=== PATIENT | female | born 1950 | race Caucasian/White ===

== ENCOUNTER → 2018-08-19 19:46 | Outpatient (CLI) | payer OTHER, SELFPAY ==
--- NOTE | 2018-08-19 19:53 | DI.RAD.S_ITS ---
PROCEDURE: XR CHEST 2V INDICATIONS: cough TECHNIQUE: 2 views of the chest were acquired. COMPARISON: [facility], CHEST 2 VIEW, 04/03/2017, 14:51. [facility], CHEST 2 VIEW, 06/12/2012, 10:06. [facility], CHEST 2 VIEW, 09/28/2011, 10:51. [facility], CHEST 2 VIEW, 04/27/2011, 11:10. FINDINGS: Surgical changes and devices: Surgical clips project over the bilateral chest wall/axillae. Stable high attenuation material within a lower thoracic/superior lumbar vertebral body, consistent with prior kyphoplasty. Lungs and pleura: Minimal bibasilar hazy opacities with blunting of the costophrenic angles noted bilaterally. No pneumothorax. Mediastinum: Mediastinal contours are normal. Heart size is normal. Bones and chest wall: No suspicious bony abnormalities. Soft tissues appear unremarkable. IMPRESSION: Hazy bibasilar pulmonary opacities most consistent with mild bibasilar atelectasis and trace bilateral pleural effusions, with pneumonia thought less likely. Dictated by: Peng Luna M.D. on 08/19/2018 at 20:16 Approved by: Peng Luna M.D. on 08/19/2018 at 20:19
== END ==
PROVIDERS: Family Provider Family Medicine; PCP Family Medicine; Visit Provider Physician Assistant
DX: R05 Cough (principal)
CPT/HCPCS: 71046

== ENCOUNTER → 2018-08-31 09:01 | Outpatient (CLI) | payer OTHER, SELFPAY ==
[2018-08-31 09:55] LABS: Add Manual Diff / Slide Review NO; Basophils Absolute Auto 100 /uL (0-100); Basophils Percent Auto 0.9 % (0-2); Eosinophils Absolute Auto 400 /uL (0-450); Eosinophils Percent Auto 5.2 % (2-4); Hematocrit 40.2 % (36-46); Hemoglobin 13.9 g/dL (12.0-16.0); Lymphocytes Absolute Auto 2400 /uL (1100-4500); Lymphocytes Percent Auto 28.5 % (25-40); Mean Corpuscular HGB Conc 34.4 % (30-36); Mean Corpuscular Hemoglobin 31.2 PG (26-34); Mean Corpuscular Volume 90.7 fL (80-100); Monocytes Absolute Auto 800 /uL (0-900); Monocytes Percent Auto 9.7 % (3-14); Neutrophils Absolute Auto 4800 /uL (1500-7000); Neutrophils Percent Auto 55.7 % (50-75); Platelet Count 262 X10^3/uL (150-400); Red Blood Cell Count 4.44 X10^6/uL (4.0-5.2); Red Cell Distribution Width 12.5 % (11.6-14.8); White Blood Cell Count 8.6 X10^3/uL (4.5-11.0)
[2018-08-31 10:16] LABS: Alanine Aminotransferase 29 IU/L (9-52); Albumin 4.3 g/dL (3.5-5.0); Albumin Globulin Ratio 1.8 (1.0-2.8); Alkaline Phosphatase 66 U/L (38-126); Aspartate Aminotransferase 25 IU/L (14-36); BUN Creatinine Ratio 18.3 (6-22); Bilirubin Total 0.5 mg/dL (0.2-1.3); Blood Urea Nitrogen 11 mg/dL (7-17); Calcium 10.1 mg/dL (8.4-10.2); Carbon Dioxide 27 mmol/L (22-32); Chloride 104 mmol/L (98-107); Cholesterol 186 mg/dL (140-199); Estimated Glomerular Filt Rate > 60.0 mL/min (>60); Globulin 2.4 g/dL (1.7-4.1); Glucose 98 mg/dL (80-110); HDL Cholesterol 57 mg/dL (40-60); HEMOLYSIS < 15 (0-50); LDL Cholesterol Calculated 109 mg/dL (<100); Potassium 4.1 mmol/L (3.4-5.1); Sodium 138 mmol/L (137-145); Total Protein 6.7 g/dL (6.3-8.2); Triglycerides 98 mg/dL (35-150)
[2018-08-31 11:11] LABS: Vitamin D 25 Hydroxy (D3) 58.8 ng/mL (30.0-100.0)
[2018-08-31 11:26] LABS: Thyroid Stimulating Hormone 1.27 uIU/mL (0.47-4.68)
== END ==
PROVIDERS: PCP Family Medicine; Visit Provider Family Medicine
DX: M81.0 Age-related osteoporosis without current pathological fracture (principal); R89.9 Unspecified abnormal finding in specimens from other organs, systems and tissues; Z13.0 Encounter for screening for diseases of the blood and blood-forming organs and certain disorders involving the immune mechanism; Z13.1 Encounter for screening for diabetes mellitus; Z13.220 Encounter for screening for lipoid disorders; Z13.29 Encounter for screening for other suspected endocrine disorder; Z85.3 Personal history of malignant neoplasm of breast
CPT/HCPCS: 36415; 80053; 80061; 82306; 84443; 85025

== ENCOUNTER → 2018-09-02 09:31 | Outpatient (CLI) | payer OTHER, SELFPAY ==
--- NOTE | 2018-09-02 09:32 | DI.US.S_ITS ---
PROCEDURE: US ABDOMEN COMPLETE INDICATIONS: abd pain TECHNIQUE: Real-time scanning was performed of the abdominal and retroperitoneal organs, with image documentation. COMPARISON: [facility], CT, PE STUDY (CTA CHEST), 01/05/2008, 15:13. FINDINGS: Liver: Liver is normal in size and homogeneous in echotexture. Gallbladder: Surgically absent Biliary ducts: Intrahepatic bile ducts are non-dilated. Extrahepatic bile duct caliber measures 5 mm. Normal is 6-7 mm or less in diameter, or 10 mm or less post-cholecystectomy. Pancreas: Visualized portions of the pancreas are sonographically normal. Spleen: Spleen is normal in size and homogeneous in echotexture. Kidneys: Kidneys are normal in size and echotexture. Right kidney measures 11.9 cm long; left kidney measures 12.0 cm long. No hydronephrosis or nephrolithiasis. No solid masses. Complex right renal cyst measuring 1.4 x 4.6 x 6.0 cm with internal septations and echoes. Aorta: Visualized aorta is normal in caliber at less than 3 cm. Iliacs: Proximal common iliac arteries are normal in caliber at less than 2.5 cm. IVC: Intrahepatic inferior vena cava is patent. Miscellaneous: No free abdominal fluid. An area of left lower quadrant scar/pain, no discrete sonographic mass or focal fluid collection is identified. IMPRESSION: No sonographic abnormality in area of left lower quadrant pain/scar. Mildly complex right renal cyst with internal septations. Recommend long-term ultrasound surveillance in 6 months given the absence of any relevant prior studies. Dictated by: Carlos Reyes M.D. on 09/02/2018 at 12:02 Approved by: Carlos Reyes M.D. on 09/02/2018 at 12:06
== END ==
PROVIDERS: PCP Family Medicine; Visit Provider Family Medicine
DX: R10.9 Unspecified abdominal pain (principal); N28.1 Cyst of kidney, acquired; Z90.49 Acquired absence of other specified parts of digestive tract
CPT/HCPCS: 76700

== ENCOUNTER → 2019-01-19 07:20 | Outpatient (CLI) | payer OTHER, SELFPAY ==
[2019-01-19 08:41] LABS: BUN Creatinine Ratio 23.3 (6-22); Blood Urea Nitrogen 14 mg/dL (7-17); Calcium 10.2 mg/dL (8.4-10.2); Carbon Dioxide 27 mmol/L (22-32); Chloride 102 mmol/L (98-107); Estimated Glomerular Filt Rate > 60.0 mL/min (>60); Glucose 102 mg/dL (80-110); HEMOLYSIS 25 (0-50); Potassium 5.2 mmol/L (3.4-5.1); Sodium 136 mmol/L (137-145)
--- NOTE | 2019-01-19 09:03 | DI.CT.S_ITS ---
PROCEDURE: CT CHEST ABD PEL W CON INDICATIONS: Abdominal Wall Pain TECHNIQUE: After the administration of oral and intravenous contrast, 5 mm thick sections acquired from the lung apices to the symphysis. 5 mm coronal and sagittal reformats were performed, with additional 7 mm coronal MIP reformats through the lungs. For radiation dose reduction, the following was used: automated exposure control, adjustment of mA and/or kV according to patient size. COMPARISON: [facility], CR, ABDOMEN ACUTE SERIES, 06/18/2013, 17:58. [facility], MR, L-SPINE WITHOUT CONTRAST, 06/29/2013, 17:01. [facility], CT, PE STUDY (CTA CHEST), 01/05/2008, 15:13. FINDINGS: Image quality: Excellent. CHEST: Lungs and pleura: No acute consolidative opacities. Scattered scarring/atelectasis. No pleural effusions or pneumothorax. Central and peripheral airways appear patent and normal in caliber. Mild central airway thickening Mediastinum: Heart size is normal. No pericardial effusion. No mediastinal or hilar adenopathy by size criteria. Subcentimeter nonspecific right hilar lymph nodes. Thoracic aorta enlarged measuring 4.1 cm diameter. The central pulmonary arteries are normal in size. Esophagus is normal in caliber. No hiatal hernia. Chest wall: No axillary or supraclavicular adenopathy by size criteria. Thyroid gland negative. ABDOMEN: Solid organs: Liver is normal in size and enhancement. Gallbladder surgically absent. Biliary system is non dilated. Pancreas enhances normally. Spleen is normal in size and enhancement. Unchanged left adrenal nodule dating back to 01/05/08. Right adrenal gland unremarkable. Kidneys demonstrate normal size and enhancement, without hydronephrosis. Simple appearing bilateral renal cysts. Peritoneum and bowel: Bowel loops demonstrate normal wall thickness and caliber. No free fluid or air. Nodes and vessels: Shotty subcentimeter retroperitoneal lymph nodes without pathologic enlargement by size criteria. Aorta and inferior vena cava are normal in size. 5 mm left pelvic sidewall lymph node on image 100 series 2, nonspecific. Miscellaneous: Tiny fat containing umbilical hernia. There is a 1.5 cm soft tissue attenuation involving the left anterior abdominal wall. There is atrophy of the right left rectus abdominis muscle. PELVIS: Genitourinary: Mild circumferential bladder wall thickening. Miscellaneous: No inguinal hernias or pathologic sized adenopathy. Bones: Sclerotic 1 cm lesion seen in the right ischial tuberosity, which is probably unchanged since 06/18/13. Multilevel spondylosis and diffuse facet disease. IMPRESSION: Focal ill-defined soft tissue attenuation, possibly scarring, involving the left anterior abdominal wall in the expected region of the left rectus abdominis muscle, which is markedly atrophic. This could represent postsurgical change potentially from prior laparoscopic port placement. However technically indeterminate and recommend clinical correlation. Metastatic disease is thought to be a discrete less likely although cannot be entirely excluded without prior studies and this could be further monitored for long-term stability Elsewhere, no specific evidence of active or progressive metastatic disease. Unchanged left adrenal nodule dating back to 01/05/08. Shotty subcentimeter retroperitoneal and left pelvic sidewall lymph nodes, without definite pathologic enlargement by size criteria although recommend attention to these areas on future surveillance CTs, given no relevant prior studies for comparison purposes. Additional chronic and incidental findings as above. Dictated by: Carlos Reyes M.D. on 01/19/2019 at 10:42 Approved by: Carlos Reyes M.D. on 01/19/2019 at 11:02
== END ==
PROVIDERS: PCP Family Medicine; Visit Provider Surgery
DX: R10.9 Unspecified abdominal pain (principal); R93.5 Abnormal findings on diagnostic imaging of other abdominal regions, including retroperitoneum
CPT/HCPCS: 36415; 71260; 74177; 80048; Q9967

== ENCOUNTER 2019-03-15 08:10 | Day surgery (SDC) | payer OTHER, SELFPAY ==
--- NOTE | 2019-03-15 | PATH_ITS ---
[facility] Accession Number: [id number] . 01 Material submitted: . colon - COLON POLYP AT 30 CM . 01 Clinical history: . SCREENING COLONOSCOPY . 02 Diagnosis: Colon at 30 cm, Polyp: Hyperplastic polyp. MRV 03/16/2019 0914 Local . 02 Electronically signed: . Rory Majano MD, PhD, Pathologist NPI- [id number] . 01 Gross description: . COLON POLYP AT 30 CM: Received in formalin is 1 fragment(s) of duarte, soft tissue measuring 0.2 x 0.2 x 0.1 cm which is entirely submitted and submitted entirely in 1 cassette(s) /[facility] [place] 03/15/20191954 Local . 02 Pathologist provided ICD-10: K63.5 . 02 CPT . 517830 Performed at: 01 [facility] [address] [id number] MD Santos Ware MD Phone: [phone] Performed at: 02 [facility] [address] [place], [place] [id number] MD Antonieta Mccullough MD Phone: [phone]
--- NOTE | 2019-03-15 08:33 | PM.PREOP ---
Pre-operative Note Interval Note History & Physical reviewed/Exam performed by Physician: Yes Changes to H&P: No ASA Class (for procedural sedation): II
[2019-03-15 08:38] VITALS: BP 118/69; PULSE 76; RESP 24; TEMP 36.3; O2SAT 96; BMI 22.5
[2019-03-15] MEDS: SODIUM CHLORIDE 0.9% 1,000 ML 200 ML IV (08:46)
--- NOTE | 2019-03-15 09:22 | PM.OP.ENDO ---
Operative Date/Time/Diagnoses Date of procedure: 03/15/19 Time of procedure: 09:22 Pre-op diagnosis: screening colonoscopy Post-op diagnosis: same Procedure & Clinicians Study performed: colonoscopy Same procedure as scheduled: Yes Indications: 68-year-old female with colonoscopy 5 years ago that demonstrated an adenomatous polyp presents for screening Surgeon: Ashkan March Procedure Notes SCOAP/Timeout: Performed Procedure in detail: Patient placed in left lateral decubitus position. Time out was performed. Procedural sedation was administered with Versed and Fentanyl. A rectal exam demonstrated no external hemorrhoids no internal masses. Colonoscopy scope was placed into the rectum and advanced through the colon to the cecum. The ileocecal valve was identified. The scope was then slowly withdrawn examining colon thoroughly in all directions. The colonoscopy demonstrated a sessile polyp <1 cm at 30 cm from the anal verge benign in appearance. Biopsy was taken and site was hemostatic. There were no further polyps, no masses or colitis. The scope was retroflexed within the rectum demonstrated grade 1 internal hemorrhoids. The rectum was desufflated and the scope removed. Patient tolerated procedure well. Scope withdrawal time: 6 Sedation minutes: 20 Findings: polyp (polyp at 30 cm) Specimen(s): other (polyp at 30 cm) Impression: polyp Post-procedure Recommendations: Colonscopy in 5 years Disposition: PACU
[2019-03-15] MEDS: MIDAZOLAM 5 MG/5 ML VIAL IV (09:44)
[2019-03-15] MEDS: fentaNYL 250 MCG/5 ML INJ IV (09:45)
[2019-03-15 09:47] VITALS: BP 91/55; PULSE 66; RESP 12; TEMP 36.3; O2SAT 94
[2019-03-15 09:52] VITALS: BP 93/59; PULSE 65; RESP 17; O2SAT 93
[2019-03-15 10:00] VITALS: BP 99/60; PULSE 73; RESP 15; O2SAT 96
[2019-03-15 10:03] VITALS: BP 95/61; PULSE 67; RESP 17; O2SAT 94
[2019-03-15 10:09] VITALS: BP 96/59; PULSE 71; RESP 16; TEMP 36.2; O2SAT 98
== END 2019-03-15 10:28 | disposition home or self-care (01) ==
PROVIDERS: PCP Family Medicine; Visit Provider Surgery
PROC: 0DJD8ZZ Inspection of Lower Intestinal Tract, Via Natural or Artificial Opening Endoscopic (ICD-10-PCS; CPT 45378; principal; 2019-03-15 09:15)
DX: K63.5 Polyp of colon (principal); Z86.010 Personal history of colon polyps
CPT/HCPCS: 45380; 99152; J2250; J3010

== ENCOUNTER 2019-07-10 19:47 | Emergency (ER) | payer OTHER, SELFPAY ==
[2019-07-10 20:00] VITALS: BP 152/73; PULSE 78; RESP 18; TEMP 36.2; O2SAT 99; BMI 22.0
[2019-07-10] MEDS: IBUPROFEN 400 MG TABLET 800 MG PO (20:10)
--- NOTE | 2019-07-10 20:50 | DI.CT.S_ITS ---
PROCEDURE: CT CHEST W CON INDICATIONS: fall with left rib fracture TECHNIQUE: After the administration of intravenous contrast, 5 mm thick sections acquired from the pulmonary apices to the posterior costophrenic angles. 1 mm axial lung, 5 mm thick coronal and sagittal reformats and 7 mm axial MIP were acquired. For radiation dose reduction, the following was used: automated exposure control, adjustment of mA and/or kV according to patient size. COMPARISON: [facility], CT, CT CHEST ABD PEL W CON, 01/19/2019, 8:42. [facility], CT, PE STUDY (CTA CHEST), 01/05/2008, 15:13. FINDINGS: Image quality: Diagnostic. Lungs and pleura: The lungs are well aerated. There is no focal consolidation, effusion, or pneumothorax. There is no lung mass. A 3 mm nodule is evident along the major fissure of the superior margin of the right lower lobe (image 24, series 2). This nodule is unchanged since 2007, compatible with a benign process No additional nodules are appreciated. Mediastinum: Heart size is normal. No pericardial effusion. No mediastinal or hilar adenopathy by size criteria. Thoracic aorta and central pulmonary arteries are normal in size. Esophagus is normal in caliber. No hiatal hernia. Bones and chest wall: No suspicious bony lesions. No vertebral body compression fractures. Kyphoplasty/vertebroplasty changes at the thoracolumbar junction are present. No displaced rib fractures are appreciated. No axillary or supraclavicular adenopathy by size criteria. Thyroid gland is not enlarged or adequately evaluated. Bilateral mastectomies are noted. Abdomen: Visualized upper abdominal solid organs appear normal. Upper abdominal bowel loops are normal in caliber. IMPRESSION: 1. No displaced rib fractures. 2. No acute cardiopulmonary process is evident. Note: The preliminary report provided by [facility]. is concordant with the final report. Dictated by: Jorge Ni M.D. on 07/11/2019 at 8:29 Approved by: Jorge Ni M.D. on 07/11/2019 at 8:34
[2019-07-10 21:23] LABS: Add Manual Diff / Slide Review NO; Basophils Absolute Auto 100 /uL (0-100); Basophils Percent Auto 0.7 % (0-2); Eosinophils Absolute Auto 700 /uL (0-450); Eosinophils Percent Auto 6.5 % (2-4); Hemoglobin 13.2 g/dL (12.0-16.0); Lymphocytes Absolute Auto 3200 /uL (1100-4500); Lymphocytes Percent Auto 30.5 % (25-40); Mean Corpuscular HGB Conc 34.7 % (30-36); Mean Corpuscular Hemoglobin 31.4 PG (26-34); Mean Corpuscular Volume 90.6 fL (80-100); Monocytes Absolute Auto 800 /uL (0-900); Neutrophils Absolute Auto 5600 /uL (1500-7000); Neutrophils Percent Auto 54.3 % (50-75); Platelet Count 228 X10^3/uL (150-400); Red Cell Distribution Width 12.3 % (11.6-14.8); White Blood Cell Count 10.4 X10^3/uL (4.5-11.0)
[2019-07-10 21:34] LABS: Alanine Aminotransferase 22 IU/L (<35); Albumin 4.1 g/dL (3.5-5.0); Albumin Globulin Ratio 1.8 (1.0-2.8); Alkaline Phosphatase 75 U/L (38-126); Aspartate Aminotransferase 27 IU/L (14-36); BUN Creatinine Ratio 23.3 (6-22); Bilirubin Total 0.2 mg/dL (0.2-1.3); Blood Urea Nitrogen 14 mg/dL (7-17); Calcium 9.9 mg/dL (8.4-10.2); Carbon Dioxide 28 mmol/L (22-32); Chloride 104 mmol/L (98-107); Estimated Glomerular Filt Rate > 60.0 mL/min (>60); Globulin 2.3 g/dL (1.7-4.1); Glucose 107 mg/dL (80-110); HEMOLYSIS 18 (0-50); Potassium 3.8 mmol/L (3.4-5.1); Sodium 138 mmol/L (137-145); Total Protein 6.4 g/dL (6.3-8.2)
[2019-07-10 22:00] VITALS: BP 121/58; PULSE 72; RESP 20; O2SAT 98
--- NOTE | 2019-07-10 22:19 | ED.FALL ---
HPI - Fall General Chief Complaint: Fall Stated Complaint: Fell, Left Rib Pain Time Seen by Provider: 07/10/19 20:35 Source: patient Mode of arrival: Ambulatory History of Present Illness HPI Narrative: Chief complaint: Trip and fall with left-sided rib pain History of present illness: The patient is a 69-year-old female who was getting out of the car when she tripped over a tall curb and landed on her left side injuring her left ribs. She did not strike her head or injure her neck. She states that she developed pain and discomfort and deep breathing and coughing. The patient states that she has a broken rib in the past and that the pain feels very similar. She has not gone to the bathroom since her fall and has not noted that there has been any blood in her urine. She denies any loss of consciousness. The pain is 7 to 8/10 in intensity with deep breathing and coughing and sometimes with movement. The pain is sharp in nature. She denies any dizziness palpitations. She has had no nausea vomiting diarrhea incontinence of urine or stool. She has had no urinary symptoms. The patient denies a history of myocardial infarction congestive heart failure stroke or hypertension. Related Data Home Medications Medication Instructions Recorded Confirmed Multiple Vitamin, Womens 1 cap PO Q DAY #0 04/07/12 04/12/19 Vitamin C 500 mg PO Q DAY #0 04/07/12 04/12/19 Vitamin D3 1,000 iu PO Q DAY #0 04/07/12 04/12/19 cyanocobalamin (vitamin B-12) 1,200 mcg PO DAILY #0 04/07/12 04/12/19 [Vitamin B-12] calcium acetate 600 mg #0 04/15/16 04/12/19 albuterol sulfate 2 puff INHALATION Q4-6H PRN 03/15/19 03/15/19 Previous Rx's Medication Instructions Recorded lovastatin 20 mg tablet 20 mg PO HS #90 tab 03/31/19 omeprazole 20 mg capsule,delayed 20 mg PO QDAYP PRN #30 cap 03/31/19 release azithromycin 250 mg tablet See Rx Instructions PO .COMPLEX #6 04/12/19 tab benzonatate 100 mg capsule 100 mg PO BID PRN #14 cap 04/12/19 tolterodine 4 mg capsule,extended See Rx Instructions .ROUTE 05/24/19 release 24 hr .COMPLEX #90 capsule lorazepam 0.5 mg tablet See Rx Instructions .ROUTE 06/07/19 .COMPLEX #30 tablet alendronate 35 mg tablet See Rx Instructions .ROUTE 06/29/19 .COMPLEX #12 tablet cyclobenzaprine 10 mg PO TID PRN #14 tab 07/10/19 naproxen [Naprosyn] 500 mg PO BID PRN #20 tab 07/10/19 Allergies Allergy/AdvReac Type Severity Reaction Status Date / Time propoxyphene Allergy Mild RASH, HIVES Verified 07/10/19 19:59 Review of Systems Review of Systems ROS Unobtainable: All systems reviewed & are unremarkable except as noted in HPI and below Patient History Surgical History History of total mastectomy History of total mastectomy Status post appendectomy Status post breast lumpectomy Status post cholecystectomy Family History Father Cancer Grandfather Heart disease Social History household members: spouse Smoking Status: Never smoker Smoking Status: Never smoker Substance Use Type: does not use Exam Narrative Exam Narrative: PHYSICAL EXAM: CONSTITUTIONAL: Awake, Alert, Oriented, Coherent, Cooperative in NAD. Does not appear toxic or ill. She is lying supine in bed. HEAD: AT/NC EENT: PERRL, FROM of eyes, no discharge, no nystagmus Oral mucosa is moist and pink, posterior pharynx is without erythema or exudate. NECK: Supple, no obvious JVD, Trachea is midline without stridor, no palpable LN or masses. SPINE: No gross deformity, no palpable tenderness of the cervical, thoracic, lumbar or sacral spine. No CVA tenderness. THORAX: No deformity, retractions, subcutaneous air or crepitice. Her her left lower lateral ribs are tender to palpation without any deformity. LUNGS: Clear with symmetrical breath sounds without respiratory distress HEART: Normal heart tones, regular rhythm and rate without murmur. ABDOMEN: Soft, non-tender, normal bowel sounds without guarding, rebound, rigidity or palpable mass . EXTREMITIES: No edema, cyanosis, deformity or tenderness. SKIN: No rash, bruising, petechiae or purpura. NEURO: Awake, alert, oriented, conversive, cranial nerves II-XII are symmetrical and normal, moves all 4 extremities and is ambulatory Initial Vital Signs Initial Vital Signs: Vital Signs Temperature 97.2 F L 07/10/19 20:00 Pulse Rate 78 07/10/19 20:00 Respiratory Rate 18 07/10/19 20:00 Blood Pressure 152/73 H 07/10/19 20:00 Pulse Oximetry 99 07/10/19 20:00 Course Course Course Narrative: 2320: CT scan revealed no acute fracture or pneumothorax. The patient clinically has bruise contused ribs. She will be discharged home. Orders Ordered: Discontinued Medications Ibuprofen (Advil) 800 mg PO NOW ONE Stop: 07/10/19 20:05 Last Admin: 07/10/19 20:10 Dose: 800 mg Documented by: DELORIS Ketorolac Tromethamine (Toradol) 15 mg IV NOW ONE Stop: 07/10/19 23:48 Last Admin: 07/10/19 23:56 Dose: 15 mg Documented by: HODA Vital Signs Vital signs: Vital Signs - 8 hr 07/10/19 20:00 07/10/19 22:00 07/10/19 23:27 Temperature 97.2 F L Pulse Rate 78 72 61 Respiratory Rate 18 20 Blood Pressure 152/73 H Blood Pressure [Right Arm] 121/58 L 105/58 L Pulse Oximetry 99 98 97 MDM - Fall Medical Records Attestation: I reviewed the patient's medical records. Lab Data Attestation: I reviewed the patient's lab results. Result diagrams: 07/10/19 21:15 07/10/19 21:15 Labs: Lab Results 07/10/19 07/10/19 Range/Units 21:15 21:15 WBC 10.4 (4.5-11.0) X10^3/uL RBC 4.20 (4.0-5.2) X10^6/uL Hgb 13.2 (12.0-16.0) g/dL Hct 38.0 (36-46) % MCV 90.6 (80-100) fL MCH 31.4 (26-34) PG MCHC 34.7 (30-36) % RDW 12.3 (11.6-14.8) % Plt Count 228 (150-400) X10^3/uL Neut % (Auto) 54.3 (50-75) % Lymph % (Auto) 30.5 (25-40) % [place] % (Auto) 8.0 (3-14) % Eos % (Auto) 6.5 H (2-4) % Baso % (Auto) 0.7 (0-2) % Neut # (Auto) 5600 (4181-3102) /uL Lymph # (Auto) 3200 (8922-0018) /uL [place] # (Auto) 800 (0-900) /uL Eos # (Auto) 700 H (0-450) /uL Baso # (Auto) 100 (0-100) /uL Sodium 138 (137-145) mmol/L Potassium 3.8 (3.4-5.1) mmol/L Chloride 104 (98-107) mmol/L Carbon Dioxide 28 (22-32) mmol/L BUN 14 (7-17) mg/dL Creatinine 0.60 (0.52-1.04) mg/dL Estimated GFR > 60.0 (>60) mL/min BUN/Creatinine Ratio 23.3 H (6-22) Glucose 107 (80-110) mg/dL Calcium 9.9 (8.4-10.2) mg/dL Total Bilirubin 0.2 (0.2-1.3) mg/dL AST 27 (14-36) IU/L ALT 22 (<35) IU/L Alkaline Phosphatase 75 (38-126) U/L Total Protein 6.4 (6.3-8.2) g/dL Albumin 4.1 (3.5-5.0) g/dL Globulin 2.3 (1.7-4.1) g/dL Albumin/Globulin Ratio 1.8 (1.0-2.8) Discharge Plan Departure Patient Disposition: Home Clinical Impression: Painful rib, Acute chest wall pain Fall Qualifiers: Encounter type: initial encounter Qualified Code(s): W19.XXXA - Unspecified fall, initial encounter Contusion Qualifiers: Encounter type: initial encounter Contusion area: thoracic wall Contusion of thoracic wall detail: front wall of thorax Laterality: left Qualified Code(s): S20.212A - Contusion of left front wall of thorax, initial encounter Discharge Date/Time: 07/11/19 00:02 Instructions: DI for Rib Contusion, How to Prevent Falls, DI for Chest Pain Activity Restrictions/Additional Instructions: Your CT scan of your chest reveals that there was no fracture of the rib no pneumothorax and no contusion of the lung. For the pain and discomfort you can take Naprosyn 500 mg twice a day as needed for the pain and discomfort. For muscle spasms cramps and pain on relieved by the Naprosyn you can take Flexeril 10 mg 3 times a day. You need to follow-up with your primary care physician and be re-evaluated on Friday or Friday. If he develops worsening chest pain, shortness of breath, racing of your heart, fever, progressive cough you need to be seen by your primary care physician or return to the emergency department. Prescriptions: New naproxen [Naprosyn] 500 mg tablet 500 mg PO BID PRN (Reason: pain) Qty: 20 RF: 0 cyclobenzaprine 10 mg tablet 10 mg PO TID PRN (Reason: muscle spasm) Qty: 14 RF: 0 No Action azithromycin 250 mg tablet See Rx Instructions PO .COMPLEX Qty: 6 RF: 0 benzonatate [Tessalon Perles] 100 mg capsule 100 mg PO BID PRN (Reason: cough) Qty: 14 RF: 0 cyanocobalamin (vitamin B-12) [Vitamin B-12] 1,000 mcg Tablet 1,200 mcg PO DAILY Qty: 0 RF: 0 Multiple Vitamin, Womens Tablet 1 cap PO Q DAY Qty: 0 RF: 0 Vitamin D3 1,000 iu PO Q DAY Qty: 0 RF: 0 Vitamin C 500 mg PO Q DAY Qty: 0 RF: 0 calcium acetate 667 MG capsule 600 mg Qty: 0 RF: 0 omeprazole 20 mg capsule,delayed release(DR/EC) 20 mg PO QDAYP PRN (Reason: stomach upset) Qty: 30 RF: 5 lovastatin 20 mg tablet 20 mg PO HS Qty: 90 RF: 1 tolterodine 4 mg capsule,extended release 24hr See Rx Instructions .ROUTE .COMPLEX Qty: 90 RF: 0 lorazepam 0.5 mg tablet See Rx Instructions .ROUTE .COMPLEX Qty: 30 RF: 1 alendronate 35 mg tablet See Rx Instructions .ROUTE .COMPLEX Qty: 12 RF: 3 albuterol sulfate 90 mcg/actuation HFA aerosol inhaler 2 puff INHALATION Q4-6H PRN (Reason: Bronchospasm) RF: 0 Referrals: Aguilera,Les, MD [Primary Care Provider] -
[2019-07-10 23:27] VITALS: BP 105/58; PULSE 61; O2SAT 97
[2019-07-10] MEDS: KETOROLAC 60 MG/2 ML VIAL 15 MG IV (23:56)
== END 2019-07-11 00:02 | disposition home or self-care (01) ==
PROVIDERS: Emergency Provider Emergency Medicine; PCP Family Medicine
DX: R07.81 Pleurodynia (principal); R07.89 Other chest pain; S20.212A Contusion of left front wall of thorax, initial encounter; W19.XXXA Unspecified fall, initial encounter
CPT/HCPCS: 71250; 80053; 85025; 96374; 99283; 99284; J1885

== ENCOUNTER → 2019-08-06 17:22 | Outpatient (CLI) | payer OTHER, SELFPAY ==
--- NOTE | 2019-08-06 17:24 | DI.RAD.S_ITS ---
PROCEDURE: XR CHEST 2V INDICATIONS: cough TECHNIQUE: 2 views of the chest were acquired. COMPARISON: [facility], CR, XR CHEST 2V, 08/19/2018, 19:51. FINDINGS: Surgical changes and devices: Right axillary surgical clips. Surgical clips project over the left chest wall. Lungs and pleura: Lungs are clear. No pleural effusions or pneumothorax. Mediastinum: Mediastinal contours are normal. Heart size is normal. Bones and chest wall: No suspicious bony abnormalities. Soft tissues appear unremarkable. IMPRESSION: No acute process. Dictated by: Isatu Goodrich M.D. on 08/06/2019 at 17:40 Approved by: Isatu Goodrich M.D. on 08/06/2019 at 17:41
== END ==
PROVIDERS: PCP Family Medicine; Referring Provider Physician Assistant; Visit Provider Physician Assistant
DX: R05 Cough (principal)
CPT/HCPCS: 71046

== ENCOUNTER → 2020-03-09 10:41 | Outpatient (CLI) | payer OTHER, SELFPAY ==
[2020-03-09 11:44] LABS: Add Manual Diff / Slide Review NO; Basophils Absolute Auto 100 /uL (0-100); Basophils Percent Auto 0.5 % (0-2); Eosinophils Absolute Auto 300 /uL (0-450); Eosinophils Percent Auto 3.2 % (2-4); Hematocrit 38.6 % (36-46); Hemoglobin 13.2 g/dL (12.0-16.0); Lymphocytes Absolute Auto 2100 /uL (1100-4500); Lymphocytes Percent Auto 21.4 % (25-40); Mean Corpuscular HGB Conc 34.2 % (30-36); Mean Corpuscular Hemoglobin 31.4 PG (26-34); Mean Corpuscular Volume 91.8 fL (80-100); Monocytes Absolute Auto 700 /uL (0-900); Monocytes Percent Auto 6.9 % (3-14); Neutrophils Absolute Auto 6800 /uL (1500-7000); Platelet Count 234 X10^3/uL (150-400); Red Blood Cell Count 4.21 X10^6/uL (4.0-5.2); Red Cell Distribution Width 12.4 % (11.6-14.8)
[2020-03-09 11:52] LABS: Alanine Aminotransferase 27 IU/L (<35); Albumin 4.1 g/dL (3.5-5.0); Albumin Globulin Ratio 1.9 (1.0-2.8); Alkaline Phosphatase 65 U/L (38-126); Aspartate Aminotransferase 32 IU/L (14-36); BUN Creatinine Ratio 13.7 (6-22); Bilirubin Total 0.5 mg/dL (0.2-1.3); Blood Urea Nitrogen 7 mg/dL (7-17); Calcium 9.6 mg/dL (8.4-10.2); Carbon Dioxide 31 mmol/L (22-32); Chloride 102 mmol/L (98-107); Cholesterol 165 mg/dL (140-199); Estimated Glomerular Filt Rate > 60.0 mL/min (>60); Globulin 2.2 g/dL (1.7-4.1); Glucose 86 mg/dL (80-110); HDL Cholesterol 87 mg/dL (40-60); HEMOLYSIS < 15 (0-50); LDL Cholesterol Calculated 49 mg/dL (<100); Potassium 3.8 mmol/L (3.4-5.1); Sodium 135 mmol/L (137-145); Total Protein 6.3 g/dL (6.3-8.2); Triglycerides 144 mg/dL (35-150)
[2020-03-09 12:38] LABS: Thyroid Stimulating Hormone 1.04 uIU/mL (0.47-4.68)
== END ==
PROVIDERS: PCP Family Medicine; Referring Provider Family Medicine; Visit Provider Family Medicine
DX: R63.4 Abnormal weight loss (principal)
CPT/HCPCS: 36415; 80053; 80061; 84443; 85025

== ENCOUNTER → 2020-03-17 13:25 | Outpatient (CLI) | payer OTHER, SELFPAY ==
--- NOTE | 2020-03-17 13:28 | DI.CT.S_ITS ---
PROCEDURE: CT SOFT TISSUE NECK W CON INDICATIONS: Post cervical adenopathy TECHNIQUE: After the administration of intravenous contrast, 3.0 mm axial sections acquired from the sella to the aortic arch. Additional oblique axial 3.0 mm sections acquired through the pharynx. 3 mm thick coronal and sagittal reformats were generated. For radiation dose reduction, the following was used: automated exposure control. COMPARISON: None. FINDINGS: Image quality: Excellent. Lymph nodes: No enlarged lymph nodes seen throughout the neck. Vessels: The patient's palpable area of concern in the left posterolateral neck appears to correspond to an abnormal/aberrant course of the left extracranial internal carotid artery along the proximal segment. After the bifurcation this plan gist posteriorly to reside posterior to the left jugular vein, in very close proximity to the patient's palpable area of concern as denoted by a BB marker (series 2, image 25). There is no other mass or soft tissue abnormality in the region of the patient's palpable area of concern. There are atherosclerotic calcifications at the origins of both extracranial internal carotid arteries as well as at the carotid bifurcations. The common carotid arteries are normal in course. There is a normal three-vessel branch configuration of the aortic arch. Vertebral arteries appear grossly patent. Jugular veins are also patent. Neck spaces: The oropharynx, nasopharynx, and pharynx demonstrate no mucosal lesions. The vocal cords, false vocal cords, pyriform sinuses, epiglottis, vallecula, and tongue base all appear normal. Extramucosal spaces appear unremarkable. Glands: The parotid and submandibular glands appear normal. Thyroid gland is uniform in attenuation. Miscellaneous: Visualized brain and orbits appear normal. Lung apices appear clear. Superficial soft tissues appear normal. Bones: No suspicious bony lesions. Visualized sinuses and mastoids appear unremarkable. IMPRESSION: The patient's left posterolateral neck palpable abnormality appears to correspond to an average and course of the proximal segment extracranial internal carotid artery, which plan just posteriorly to the jugular vein and is in close proximity to the patient's palpable area of concern as denoted by a BB marker. Dictated by: Vinayak Dominguez M.D. on 03/17/2020 at 15:20 Approved by: Vinayak Dominguez M.D. on 03/17/2020 at 15:24
--- NOTE | 2020-03-17 13:28 | DI.US.S_ITS ---
PROCEDURE: US ABDOMEN LIMITED INDICATIONS: LEFT UPPER ABDOMINAL WALL LUMP TECHNIQUE: Real-time scanning was performed of the abdominal wall, with image documentation. COMPARISON: [facility], CT, PE STUDY (CTA CHEST), 01/05/2008, 15:13. [facility], CT, CT CHEST ABD PEL W CON, 01/19/2019, 8:42. FINDINGS: An area of thickening at the anterior abdominal wall anterior to the left lobe of the liver measuring 2.7 x 2.7 x 0.6 cm. The abnormality is isoechoic with posterior acoustic shadowing. This corresponds to the area of thickening seen on CT from 2019 where it measured approximately 2.2 x 2.1 x 0.9 cm. No fluid collection. IMPRESSION: Left upper abdominal wall palpable abnormality corresponds to an area of is thickening along the fascia. This may be due to scarring at a laparoscopy port site such as for prior cholecystectomy. No fluid collection. Dictated by: Ezra Suazo M.D. on 03/17/2020 at 15:51 Approved by: Ezra Suazo M.D. on 03/17/2020 at 15:57
== END ==
PROVIDERS: PCP Family Medicine; Referring Provider Family Medicine; Visit Provider Family Medicine
DX: R59.0 Localized enlarged lymph nodes (principal); R19.02 Left upper quadrant abdominal swelling, mass and lump; K43.9 Ventral hernia without obstruction or gangrene; M81.0 Age-related osteoporosis without current pathological fracture; Z78.0 Asymptomatic menopausal state; Z85.3 Personal history of malignant neoplasm of breast; Z87.891 Personal history of nicotine dependence
CPT/HCPCS: 70491; 76705; 77080; Q9967

== ENCOUNTER → 2020-08-09 10:35 | Outpatient (CLI) | payer OTHER, SELFPAY ==
[2020-08-09 13:05] LABS: COVID19 -Nasal RAPID Negative (Negative)
== END ==
PROVIDERS: PCP Family Medicine; Visit Provider Physician Assistant
DX: R52 Pain, unspecified (principal); R53.83 Other fatigue; Z20.822 Contact with and (suspected) exposure to COVID-19
CPT/HCPCS: 87635

== ENCOUNTER → 2020-11-29 18:20 | Outpatient (CLI) | payer OTHER, SELFPAY | PROVIDERS: PCP Internal Medicine; Visit Provider Student in an Organized Health Care Education/Training Program | DX: K13.0 Diseases of lips (principal) | CPT/HCPCS: 87070; 87075; 87077; 87147; 87186; 87205; 87252 ==

== ENCOUNTER → 2021-09-07 18:33 | Outpatient (CLI) | payer MEDICARE, OTHER, SELFPAY ==
--- NOTE | 2021-09-07 18:36 | DI.RAD.S_ITS ---
PROCEDURE: XR RIBS LT MIN 3V W CXR1V INDICATIONS: Rib pain TECHNIQUE: To views of the left ribs were acquired, along with a single view chest. COMPARISON: [facility], , XR CHEST 2V, 08/06/2019, 17:26. FINDINGS: Surgical changes and devices: Surgical clips are stable.. Bones and chest wall: No fractures or dislocations. No suspicious bony lesions. Overlying soft tissues appear unremarkable. Lungs and pleura: No pleural effusions or pneumothorax. Lungs appear clear. Mediastinum: Mediastinal contours appear normal. Heart size is normal. IMPRESSION: No displaced rib fracture. No acute cardiopulmonary disease process. Dictated by: Nuzhat Fox MD, PhD on 09/07/2021 at 19:39 Approved by: Nuzhat Fox MD, PhD on 09/07/2021 at 19:40
== END ==
PROVIDERS: PCP Internal Medicine; Referring Provider Nurse Practitioner Critical Care Medicine; Visit Provider Nurse Practitioner Critical Care Medicine
DX: R07.81 Pleurodynia (principal)
CPT/HCPCS: 71101

== ENCOUNTER → 2021-09-20 10:36 | Outpatient (CLI) | payer MEDICARE, OTHER, SELFPAY ==
[2021-09-20 11:47] LABS: Add Manual Diff / Slide Review NO; Basophils Absolute Auto 0 /uL (0-100); Basophils Percent Auto 0.5 % (0-2); Eosinophils Absolute Auto 300 /uL (0-450); Eosinophils Percent Auto 3.6 % (2-4); Hematocrit 38.1 % (36-46); Hemoglobin 13.5 g/dL (12.0-16.0); Lymphocytes Absolute Auto 2200 /uL (1100-4500); Lymphocytes Percent Auto 26.8 % (25-40); Mean Corpuscular HGB Conc 35.3 % (30-36); Mean Corpuscular Volume 90.6 fL (80-100); Monocytes Absolute Auto 600 /uL (0-900); Monocytes Percent Auto 7.1 % (3-14); Neutrophils Absolute Auto 5200 /uL (1500-7000); Platelet Count 232 X10^3/uL (150-400); Red Blood Cell Count 4.21 X10^6/uL (4.0-5.2); Red Cell Distribution Width 12.8 % (11.6-14.8); White Blood Cell Count 8.4 X10^3/uL (4.5-11.0)
[2021-09-20 12:29] LABS: Alanine Aminotransferase 13 IU/L (<35); Albumin 4.1 g/dL (3.5-5.0); Albumin Globulin Ratio 2.2 (1.0-2.8); Alkaline Phosphatase 52 U/L (38-126); Aspartate Aminotransferase 22 IU/L (14-36); BUN Creatinine Ratio 10.7 (6-22); Bilirubin Total 0.6 mg/dL (0.2-1.3); Blood Urea Nitrogen 6 mg/dL (7-17); Calcium 9.7 mg/dL (8.4-10.2); Carbon Dioxide 26 mmol/L (22-32); Chloride 105 mmol/L (98-107); Cholesterol 176 mg/dL (140-199); Estimated Glomerular Filt Rate > 60 mL/min (>60); Globulin 1.9 g/dL (1.7-4.1); Glucose 80 mg/dL (80-110); HDL Cholesterol 81 mg/dL (40-60); HEMOLYSIS < 15 (0-50); LDL Cholesterol Calculated 76 mg/dL (<100); Potassium 4.2 mmol/L (3.4-5.1); Sodium 136 mmol/L (137-145); Triglycerides 95 mg/dL (35-150)
== END ==
PROVIDERS: PCP Internal Medicine; Referring Provider Internal Medicine; Visit Provider Internal Medicine
DX: E78.5 Hyperlipidemia, unspecified (principal); R32 Unspecified urinary incontinence
CPT/HCPCS: 36415; 80053; 80061; 85025

== ENCOUNTER → 2021-11-25 11:10 | Outpatient (CLI) | payer MEDICARE, OTHER, SELFPAY ==
[2021-11-25 12:25] LABS: Influenza A - CEPHEID Flu A NEGATIVE (NEGATIVE); Influenza B - CEPHEID Flu B NEGATIVE (NEGATIVE)
[2021-11-25 12:29] LABS: COVID-19 CEPHEID PCR (VTM/NP) Negative (Negative)
== END ==
PROVIDERS: PCP Internal Medicine; Visit Provider Physician Assistant
DX: R53.83 Other fatigue (principal)
CPT/HCPCS: 0240U

== ENCOUNTER → 2021-12-11 11:43 | Outpatient (CLI) | payer MEDICARE, OTHER, SELFPAY ==
--- NOTE | 2021-12-11 11:45 | DI.RAD.S_ITS ---
PROCEDURE: XR CHEST 2V INDICATIONS: cough TECHNIQUE: 2 views of the chest were acquired. COMPARISON: [facility], CR, XR CHEST 2V, 08/06/2019, 17:26. [facility], CR, XR CHEST 2V, 08/19/2018, 19:51. FINDINGS: Surgical changes and devices: Metal clips project over the right upper chest and left mid chest as before. Lower thoracic vertebroplasty cement present as before. Lungs and pleura: No suspicious focal airspace opacity. No pleural effusion or pneumothorax. Mediastinum: Mediastinal contours are normal. Heart size is normal. Bones and chest wall: No suspicious bony abnormalities. IMPRESSION: No acute cardiopulmonary abnormality. Dictated by: Javy Madison M.D. on 12/11/2021 at 17:08 Approved by: Javy Madison M.D. on 12/11/2021 at 17:11
== END ==
PROVIDERS: PCP Internal Medicine; Referring Provider Internal Medicine; Visit Provider Internal Medicine
DX: R05.9 Cough, unspecified (principal)
CPT/HCPCS: 71046

== ENCOUNTER → 2022-05-17 12:03 | Outpatient (CLI) | payer MEDICARE, OTHER, SELFPAY ==
--- NOTE | 2022-05-17 12:04 | DI.RAD.S_ITS ---
PROCEDURE: XR CHEST 2V INDICATIONS: cough TECHNIQUE: 2 views of the chest were acquired. COMPARISON: [facility], CR, XR CHEST 2V, 12/11/2021, 11:53. [facility], CR, XR CHEST 2V, 08/06/2019, 17:26. FINDINGS: Surgical changes and devices: Vertebroplasty/kyphoplasty bone-cement thoracolumbar junction area.. Lungs and pleura: Lungs are abnormal with severe pulmonary hyperexpansion previously present also.. No pleural effusions or pneumothorax. Mediastinum: Mediastinal contours are normal. Heart size is normal. Bones and chest wall: No suspicious bony abnormalities. Soft tissues appear unremarkable. IMPRESSION: No pneumonia found. Severe COPD. Dictated by: Artur Wood M.D. on 05/17/2022 at 14:21 Approved by: Artur Wood M.D. on 05/17/2022 at 14:22
== END ==
PROVIDERS: PCP Internal Medicine; Referring Provider Internal Medicine; Visit Provider Internal Medicine
DX: R05.2 Subacute cough (principal); J44.9 Chronic obstructive pulmonary disease, unspecified
CPT/HCPCS: 71046

== ENCOUNTER → 2022-06-13 09:49 | Outpatient (CLI) | payer MEDICARE, OTHER, SELFPAY ==
[2022-06-13 10:40] LABS: COVID19 -Nasal RAPID Negative (Negative)
== END ==
PROVIDERS: PCP Internal Medicine; Referring Provider Internal Medicine; Visit Provider Internal Medicine
DX: Z20.822 Contact with and (suspected) exposure to COVID-19 (principal)
CPT/HCPCS: 87635; C9803

== ENCOUNTER → 2022-06-14 10:19 | Outpatient (CLI) | payer MEDICARE, OTHER, SELFPAY ==
--- NOTE | 2022-06-24 14:07 | PM.PFT.1 ---
Pulmonary Function Test Referral & Results Date Patient Seen: 06/14/22 Requesting provider: Nguyễn Robert Indication: COPD Results: The spirometry demonstrates an FVC of 1.89 L which is 56% of predicted. The FEV1 was measured at 1.11 L which is 44% of predicted. The FEV1/FVC ratio was 59 which is 78% of predicted. Following the administration of bronchodilator there was a 25% improvement in FEV1 and a 92% improvement in FEF 25-75%. Lung volumes show an SVC of 2.12 L which is 66% of predicted. The diffusing capacity was measured at 13.31 which is 44% of predicted. My no hemoglobin The maximum voluntary ventilation was reduced Interpretation: This study demonstrates moderately severe obstructive lung disease with evidence of significant benefit following bronchodilator administration as above There is also moderate restrictive lung disease present based on reduction SVC There is a moderately severe reduction in diffusing capacity suggesting significant disease at the capillary alveolar level as well Compared to PFTs performed in October 2011, current study shows decline in FEV1 and SVC. Diffusing capacity is relatively unchanged Prior study also did not demonstrate any benefit following bronchodilator administration
--- NOTE | 2022-07-25 14:29 | PM.PFT.1 ---
Pulmonary Function Test Referral & Results Date Patient Seen: 06/14/22 Requesting provider: Nguyễn Robert Indication: Shortness of breaths Results: The spirometry demonstrates an FVC of 1.89 L which is 56% of predicted. The FEV1 was measured at 1.11 L which is 44% of predicted. The FEV1/FVC ratio was 59 which is 78% of predicted. Following the administration of bronchodilator there was 25% improvement in FEV1 and a 92% improvement in FEF 25-75%. Lung volumes show an SVC of 2.12 L which is 66% of predicted. The diffusing capacity was measured at 13.31 which is 44% of predicted. No hemoglobin value was provided, so no correction for potential anemia could be made, if appropriate. The maximum voluntary ventilation was reduced Interpretation: This study demonstrates moderately severe obstructive lung disease based on reduction FEV1 although FEV1/FVC ratio is relatively preserved. There is evidence of significant benefit following bronchodilator as above There is a mild reduction in SVC suggesting the presence of mild restrictive lung disease which may explain some of the abnormality in the FEV1 above There is a moderate reduction diffusing capacity suggesting moderate disease at the capillary alveolar level Clinical correlation suggested
== END ==
PROVIDERS: PCP Internal Medicine; Referring Provider Internal Medicine; Visit Provider Internal Medicine
DX: J44.9 Chronic obstructive pulmonary disease, unspecified (principal); F17.210 Nicotine dependence, cigarettes, uncomplicated
CPT/HCPCS: 94060; 94726; 94729

== ENCOUNTER → 2022-06-27 09:06 | Outpatient (CLI) | payer MEDICARE, OTHER, SELFPAY ==
[2022-06-27 11:14] LABS: COVID19 -Nasal RAPID Negative (Negative)
== END ==
PROVIDERS: PCP Internal Medicine; Visit Provider Surgery
DX: Z01.812 Encounter for preprocedural laboratory examination (principal); Z20.822 Contact with and (suspected) exposure to COVID-19
CPT/HCPCS: 87635; C9803

== ENCOUNTER 2022-06-28 07:37 | Day surgery (SDC) | payer MEDICARE, OTHER, SELFPAY ==
--- NOTE | 2022-06-28 | PATH_ITS ---
[facility] Accession Number: [id number] No. of containers..03 Tissue . 01 Material submitted: . PART A: cecum - CECAL PART B: hepatic flexure - HEPATIC FLEXURE PART C: rectum - RECTAL POLYP . 01 Diagnosis: A. Cecum, Biopsy: Tubular adenoma. . B. Hepatic Flexure, Biopsy: Multiple fragments of tubular adenoma. . C. Rectum, Polyp, Biopsy: Benign lymphoid aggregate. MRV 07/04/2022 1204 Local . 01 Electronically signed: . Antonieta Mccullough MD, Pathologist NPI- [id number] . 01 Gross description: . Part A: CECAL: Received in formalin are 2 fragment(s) of duarte, soft tissue measuring 0.4 x 0.1 x 0.1 cm to 0.2 x 0.1 x 0.1 cm submitted entirely in 1 cassette(s) Part B: HEPATIC FLEXURE: Received in formalin are multiple fragment(s) of duarte, soft tissue measuring 1.8 x 0.5 x 0.1 cm in aggregate submitted entirely in 1 cassette(s) Part C: RECTAL POLYP: Received in formalin is 1 fragment(s) of duarte, soft tissue measuring 0.5 x 0.1 x 0.1 cm submitted entirely in 1 cassette(s) /CPE 06/29/2022 1012 Local . 01 Pathologist provided ICD-10: D12.0, D12.3 . 01 CPT . 971237, 898848, 980013 Specimen Comment: A courtesy copy of this report has been sent to [facility] Pathology Performed at: 01 [facility] [address], [place], [place] [id number] MD Santos Ware MD Phone: [phone]
[2022-06-28 08:07] VITALS: BP 134/75; PULSE 73; RESP 18; TEMP 36.2; O2SAT 98; BMI 17.3
--- NOTE | 2022-06-28 09:09 | PM.HP.1 ---
History of Present Illness History of Present Illness Chief complaint: SCREENING COLONOSCOPY Narrative: Ms. Sang Glez presents today for screening colonoscopy. She is had several colonoscopies in the past. She is had polyps that have basically required her to have every 3 year colonoscopies. Her last colonoscopy was here at [facility] Dr. Wolff he performed this on October 2015 3 polyps were identified only 1 of which was a tubular adenoma. She has had breast cancer in the past. He had 3 separate incidents of breast cancer had a lumpectomy and right mastectomy and a left mastectomy. She is not sure if she is ever been sent for genetic counseling. She was told to have colonoscopies every 3 years. It has been clear of cancer for 20 years. She is not had any bleeding diarrhea constipation or concerning symptoms. She has no family history of colon cancer. Of note she shows me a tumor on her abdomen. It is a mass that is somewhat adhered to the possibly fascial tissues. It is easily palpable and at least 2 cm in size she says that this has been present on her abdomen for 6-7 years. She has had abdominal tumors in the past. When she had a for her son they believe that perhaps they had left something in her abdomen and did an exploratory surgery and found a tumor instead. She is not clear what type tumor this was she has 2 additional incisions nearby this mass and she thinks those were from previous biopsies. Again she is not really sure at this time all of the work would have been done at [facility] or [facility] but it was years ago. The she has lost about 30 lb unintentionally in the last 2-1/2 years and has noted this tumor more prominently over that time. Not sure if it is growing or if she just notices it more. But it is painful. She says it is not only painful to the touch but just at rest sometimes also. Patient History Medical History History of adenomatous polyp of colon History of basal cell carcinoma (BCC) excision (11/04/16) Kidney cysts Malignant neoplasm of breast (female), unspecified site (12/18/10) Memory impairment Osteoporosis (06/15/15) Other and unspecified hyperlipidemia (12/20/10) Personal history of breast cancer Umbilical hernia Unspecified hereditary and idiopathic peripheral neuropathy (09/28/11) Urinary incontinence Ventral hernia Surgical History History of total mastectomy History of total mastectomy Status post appendectomy Status post breast lumpectomy Status post cholecystectomy Family & Social History Family History Father Cancer Grandfather Heart disease Social History: household members none Tobacco & Substance use: Smoking Status Former smoker alcohol intake former Substance Use Type does not use Meds Home Medications and Allergies Home Medications Medication Instructions Recorded Confirmed Type waxjqwwafhfj-Xd-ctds-minerals 1 cap PO Q DAY ##0 04/07/12 06/28/22 History (Multiple Vitamin, Womens tablet) omeprazole 20 mg capsule,delayed 20 mg PO QDAYP PRN stomach upset 03/31/19 06/28/22 Rx release #30 caps cyanocobalamin (vitamin B-12) 1,200 mcg PO .COMPLEX 07/25/19 06/28/22 History 1,000 mcg tablet (Vitamin B-12) Vitamin C 1,000 mg PO Q DAY ##0 05/08/20 06/28/22 History Vitamin D3 2,000 unit PO Q DAY ##0 05/08/20 06/28/22 History calcium carbonate 600 mg calcium 600 mg PO BID 05/08/20 06/28/22 History (1,500 mg) tablet turmeric root extract 500 mg 500 mg PO BID 05/08/20 06/28/22 History capsule oxybutynin chloride 10 mg 10 mg PO DAILY #90 tabs 11/13/21 06/28/22 Rx tablet,extended release 24 hr alendronate 35 mg tablet See Rx Instructions .Route 02/18/22 06/28/22 Rx .COMPLEX #12 tabs lorazepam 0.5 mg tablet 0.5 mg PO DAILY PRN sleep #60 tabs 04/08/22 06/28/22 Rx lovastatin 20 mg tablet 20 mg PO HS #90 tabs 04/08/22 06/28/22 Rx Allergies Allergy/AdvReac Type Severity Reaction Status Date / Time propoxyphene Allergy Mild RASH, HIVES Verified 06/28/22 08:18 Exam Vital Signs (past 8 hours): - 06/28/22 08:07 Temperature 97.2 F L Pulse Rate 73 Respiratory Rate 18 Blood Pressure 134/75 Pulse Oximetry 98 Oxygen Delivery Method Room Air Oxygen Delivery Method Room Air Const General: cooperative, healthy appearing and comfortable HENMT Head: normal to inspection Resp Effort & Inspection: normal respiratory effort and able to speak in complete sentences GI Inspection: scar (Several abdominal incisions see below) Palpation: soft and tender (Tumor in left upper abdomen is slightly tender) Other: Right lower quadrant appendectomy incision Pfannenstiel section incision. A left lateral longitudinal incision and 2 separate transverse incisions just medial to this long left incision. Assessment & Plan Assessment and plan (1) History of adenomatous polyp of colon: Status: Inactive Assessment & Plan narrative: I discussed the risks benefits and alternatives of a screening colonoscopy. She understands the risks including but not limited to perforation of the colon and incomplete exam. She would like to proceed. Will follow-up on any imaging of this tumor that has been done and additional recommendations will follow. Time Spent With Patient Critical Care time: I spent a total of [] minutes of critical care time on this patient's care today; this time is exclusive of procedural time.
[2022-06-28 10:11] VITALS: BP 107/62; PULSE 57; RESP 20; TEMP 37.2; O2SAT 96
[2022-06-28 10:16] VITALS: BP 103/62; PULSE 57; RESP 18; O2SAT 96
[2022-06-28 10:21] VITALS: BP 114/71; PULSE 61; RESP 25; O2SAT 96
--- NOTE | 2022-06-28 10:31 | P.OP.COLON_ITS ---
Procedure & Clinicians Study performed: Colonoscopy and biopsy Indications: Screening, history of polyps. Surgeon: Shanon Gallego Procedure Notes Procedure in detail: Patient was taken to the endoscopy suite and placed in a left lateral decubitus position. A time-out was performed. Conscious sedation was induced with the help of anesthesiologist. Digital rectal exam was performed there were no masses or strictures. The colonoscope was introduced into the anal canal and advanced through to the cecum. Several attempts at abdominal pressure and a stiffener was required to reach the cecum. The prep was good [place] bowel prep score of 2. A photograph was taken of the appendiceal orifice. As the scope was then withdrawn. The total withdrawal time was 31 minutes. This includes biopsies. There was a small sessile polyp in the cecal area which was biopsied with several swipes of the Jumbo forceps. It was probably about 9 mm in size. Further withdrawal field at the hepatic flexure 2 additional sessile polyps the 1st 1 was quite small and maybe about 5 mm in size. The 2nd 1 was larger and was probably over 1 cm maybe 1.2 cm in size. Several sweeps of the biopsy force ps were required to take it out in its entirety. Photograph was taken after the biopsy and I think it was removed completely. Further withdrawal of the scope revealed some small rectal polyps which appeared hyperplastic but were biopsied. There were some scattered diverticula in the sigmoid colon. Specimen(s): other (1. Cecal sessile polyp 2. Hepatic flexure polyps x2 3. Rectal polyps.) Post-procedure Plan for aftercare: Follow-up exam recommendations will be based on pathology.
[2022-06-28 10:44] VITALS: BP 115/65; PULSE 55; RESP 16; O2SAT 99
== END 2022-06-28 10:55 | disposition home or self-care (01) ==
PROVIDERS: PCP Internal Medicine; Referring Provider Surgery; Visit Provider Surgery
PROC: 0DJD8ZZ Inspection of Lower Intestinal Tract, Via Natural or Artificial Opening Endoscopic (ICD-10-PCS; CPT 45378; principal; 2022-06-28 08:45)
DX: Z12.11 Encounter for screening for malignant neoplasm of colon (principal); Z86.010 Personal history of colon polyps; K57.30 Diverticulosis of large intestine without perforation or abscess without bleeding; D12.0 Benign neoplasm of cecum; D12.3 Benign neoplasm of transverse colon
CPT/HCPCS: 45380; J2250; J2704; J3010

== ENCOUNTER → 2022-07-04 10:42 | Outpatient (CLI) | payer MEDICARE, OTHER, SELFPAY ==
[2022-07-04 12:04] LABS: BUN Creatinine Ratio 13.3 (6-22); Blood Urea Nitrogen 8 mg/dL (7-17); Calcium 9.8 mg/dL (8.4-10.2); Carbon Dioxide 28 mmol/L (22-32); Chloride 100 mmol/L (98-107); Estimated Glomerular Filt Rate > 60 mL/min (>60); Glucose 90 mg/dL (80-110); HEMOLYSIS < 15 (0-50); Potassium 4.5 mmol/L (3.4-5.1); Sodium 135 mmol/L (137-145)
== END ==
PROVIDERS: PCP Internal Medicine; Referring Provider Internal Medicine; Visit Provider Internal Medicine
DX: Z01.812 Encounter for preprocedural laboratory examination (principal)
CPT/HCPCS: 36415; 80048

== ENCOUNTER → 2022-07-06 10:30 | Outpatient (CLI) | payer MEDICARE, OTHER, SELFPAY ==
--- NOTE | 2022-07-06 10:32 | DI.CT.S_ITS ---
PROCEDURE: CT ABDOMEN PELVIS W CON INDICATIONS: abd wall pain TECHNIQUE: After the administration of intravenous contrast, axial sections acquired from the lung bases to the pubic symphysis. Coronal and sagittal reformats were performed. For radiation dose reduction, the following was used: automated exposure control, adjustment of mA and/or kV according to patient size. COMPARISON: [facility], CT, CT CHEST ABD PEL W CON, 01/19/2019, 8:42. FINDINGS: Lower thorax: Ascending thoracic aortic aneurysm measures up to 4.4 cm, partially visualized. Lung bases are clear. Liver: Liver is enlarged at 21 cm. No focal mass lesion. Biliary system: Cholecystectomy. No intra or extrahepatic bile duct dilation. Pancreas: Unremarkable without mass or inflammation evident. Spleen: Normal in size and density. Adrenals: Normal morphology and density. Reproductive system: Unremarkable as visualized. Urinary system: Several renal cysts, largest on the right measures 6.2 cm. No hydronephrosis or calculus appreciated. Gastrointestinal system: The bowel is unremarkable without evidence of bowel obstruction or inflammation. The stomach appears unremarkable. Appendix: No findings to suggest acute appendicitis. Peritoneal spaces: No mesenteric or retroperitoneal adenopathy. No free air. No free fluid. Vasculature: Aortic atherosclerotic vascular calcification noted without evidence of aneurysm. Abdominal wall: On image /37, there is a nonspecific 1.4 cm nodule associated with the anterior abdominal wall. Left rectus muscle also appears deficient at this location. Musculoskeletal: Normal bone mineralization. Degenerative disc disease and arthropathy noted in lower lumbar spine. No acute fractures. IMPRESSION: 1. Small nonspecific nodule associated with the anterior abdominal wall on the left is stable from the prior exam 2018, may related to prior procedure if any history exists. 2. Incidental stable hepatomegaly, renal cysts without hydronephrosis, degenerative disc disease Approved by: Harpreet Johnson M.D. on 07/06/2022 at 12:19
== END ==
PROVIDERS: PCP Internal Medicine; Referring Provider Internal Medicine; Visit Provider Internal Medicine
DX: I71.21 Aneurysm of the ascending aorta, without rupture (principal); R22.2 Localized swelling, mass and lump, trunk; N28.1 Cyst of kidney, acquired; M51.36 Other intervertebral disc degeneration, lumbar region; M47.816 Spondylosis without myelopathy or radiculopathy, lumbar region; R10.9 Unspecified abdominal pain; R16.0 Hepatomegaly, not elsewhere classified; Z90.49 Acquired absence of other specified parts of digestive tract
CPT/HCPCS: 74177; Q9967

== ENCOUNTER 2022-10-16 10:15 | Outpatient (RCR) | payer MEDICARE, OTHER, SELFPAY | END 2022-10-16 12:15 | LOC: PUL 10:15 | PROVIDERS: PCP Internal Medicine; Referring Provider Internal Medicine; Visit Provider Internal Medicine | DX: J44.9 Chronic obstructive pulmonary disease, unspecified (principal) | CPT/HCPCS: 94625; 94626 ==

== ENCOUNTER → 2023-06-27 11:32 | Outpatient (CLI) | payer MEDICARE, OTHER, SELFPAY ==
[2023-06-27 12:31] LABS: Add Manual Diff / Slide Review NO; Basophils Absolute Auto 0 /uL (0-100); Basophils Percent Auto 0.6 % (0-2); Eosinophils Absolute Auto 400 /uL (0-450); Eosinophils Percent Auto 5.4 % (2-4); Hematocrit 36.6 % (36-46); Hemoglobin 12.6 g/dL (12.0-16.0); Lymphocytes Absolute Auto 1900 /uL (1100-4500); Lymphocytes Percent Auto 24.6 % (25-40); Mean Corpuscular HGB Conc 34.4 % (30-36); Mean Corpuscular Hemoglobin 31.5 PG (26-34); Mean Corpuscular Volume 91.5 fL (80-100); Monocytes Absolute Auto 900 /uL (0-900); Monocytes Percent Auto 11.2 % (3-14); Neutrophils Absolute Auto 4400 /uL (1500-7000); Neutrophils Percent Auto 58.2 % (50-75); Platelet Count 253 X10^3/uL (150-400); Red Cell Distribution Width 12.7 % (11.6-14.8); White Blood Cell Count 7.6 X10^3/uL (4.5-11.0)
[2023-06-27 12:43] LABS: Alanine Aminotransferase 29 IU/L (<35); Albumin 3.8 g/dL (3.5-5.0); Albumin Globulin Ratio 1.5 (1.0-2.8); Alkaline Phosphatase 84 U/L (38-126); Aspartate Aminotransferase 31 IU/L (14-36); BUN Creatinine Ratio 17.5 (6-22); Bilirubin Total 0.4 mg/dL (0.2-1.3); Blood Urea Nitrogen 10 mg/dL (7-17); Carbon Dioxide 27 mmol/L (22-32); Chloride 105 mmol/L (98-107); Estimated Glomerular Filt Rate > 60 mL/min (>60); Globulin 2.5 g/dL (1.7-4.1); Glucose 97 mg/dL (80-110); HEMOLYSIS < 15 (0-50); Potassium 4.9 mmol/L (3.4-5.1); Sodium 135 mmol/L (137-145); Total Protein 6.3 g/dL (6.3-8.2)
[2023-06-27 13:09] LABS: Free T4, Direct Thyroxine 1.13 ng/dL (0.78-2.19)
[2023-06-27 13:24] LABS: Thyroid Stimulating Hormone 1.26 uIU/mL (0.47-4.68)
== END ==
PROVIDERS: PCP Internal Medicine; Referring Provider Internal Medicine; Visit Provider Internal Medicine
DX: J44.9 Chronic obstructive pulmonary disease, unspecified (principal); E78.5 Hyperlipidemia, unspecified; E03.9 Hypothyroidism, unspecified
CPT/HCPCS: 36415; 80053; 84439; 84443; 85025

== ENCOUNTER → 2023-07-01 13:33 | Outpatient (CLI) | payer MEDICARE, OTHER, SELFPAY ==
--- NOTE | 2023-07-01 13:34 | DI.RAD.S_ITS ---
Bone Density Report Name: MARISELA KERNS Age: 73 Sex: Female Ethnicity: White Date of : 1950 Indication: osteopenia; Referring Provider: JORGE LAURENT Study: Bone densitometry was performed. Exam Date: July 01, 2023 Accession number: [id number] Bone Density: Region BMD T-score Z-score Classification AP Spine(L2, L3) 1.101 0.4 2.9 Normal Femoral Neck (Left) 0.577 -2.5 -0.4 Osteoporosis Total Hip (Left) 0.697 -2.0 -0.2 Osteopenia Femoral Neck (Right) 0.577 -2.5 -0.4 Osteoporosis Total Hip (Right) 0.641 -2.5 -0.7 Osteoporosis Total Hip Mean 0.669 -2.3 -0.5 Osteopenia World Health Organization criteria for BMD impression classify patients as: Normal (T-score at or above -1.0), Osteopenia (T-score between -1.0 and -2.5), or Osteoporosis (T-score at or below -2.5). 10-year Fracture Risk: FRAX not reported because: Some T-score for Spine Total or Hip Total or Femoral Neck at or below -2.5 Previous Exams: -- Region Exam Age BMD T-score BMD Change BMD Change Date g/cm2 vs Baseline vs Previous -- Total Hip(Left) 07/01/2023 73 0.697 -2.0 -0.037 (-5.0%)# -0.037 (-5.0%)# 03/17/2020 69 0.733 -1.7 Total Hip(Right) 07/01/2023 73 0.641 -2.5 -0.053 (-7.7%)# -0.053 (-7.7%)# 03/17/2020 69 0.694 -2.0 -- *Denotes significance at 95% confidence level, LSC for Total Hip = 0.027 g/cm2 # Denotes dissimilar scan types or analysis methods Impression: The patient has osteoporosis, based on the Right Total Hip T-score. No significant bone loss was observed. Discussion: INCREASED RISK OF FRACTURE. BONE DENSITY IS UNDESIRABLY LOW AT ONE OR MORE SKELETAL SITES, CONSISTENT WITH POSTMENOPAUSAL OSTEOPOROSIS. This patient's lowest T-score meets the World Health Organization's (WHO) criteria for osteoporosis at one or more sites (T-score -2.5 or below). In untreated patients, the risk of osteoporotic fracture increases approximately two-fold for each 1.0 SD decrease in T-score. Low bone density is not the only risk factor for fracture; also consider factors such as patient's age, frailty or poor health, risk of falling, risk of injury, previous osteoporotic fracture, family history of osteoporosis, cigarette smoking, low body weight, etc. Not everyone with low bone mineral density has osteoporosis; osteomalacia and other metabolic bone disorders should also be considered. Patients who have osteoporosis should be evaluated for specific diseases and conditions (secondary causes) that may cause or contribute to bone loss. The [place] Association of Clinical Endocrinologists (AACE) and National Osteoporosis Foundation (NOF) recommend pharmacologic intervention for all postmenopausal women whose T-score is in this range. The patient should follow a healthful lifestyle (good nutrition with adequate calcium and vitamin D, and appropriate weight-bearing exercise). Follow-Up: Consider a repeat BMD and Vertebral Fracture Assessment (VFA) exam in 2 years or sooner if medically necessary, to reassess this patient's status. Reported by: [facility] GABE MILLARD M.D. on 07/01/2023 2:55:00 PM.
== END ==
LOC: RAD 13:34
PROVIDERS: PCP Internal Medicine; Referring Provider Internal Medicine; Visit Provider Internal Medicine
DX: M81.0 Age-related osteoporosis without current pathological fracture (principal)
CPT/HCPCS: 77080

== ENCOUNTER → 2023-07-04 13:28 | Outpatient (CLI) | payer MEDICARE, OTHER, SELFPAY | LOC: RESP 13:30 | PROVIDERS: PCP Internal Medicine; Referring Provider Internal Medicine; Visit Provider Internal Medicine | DX: J44.9 Chronic obstructive pulmonary disease, unspecified (principal); Z87.891 Personal history of nicotine dependence | CPT/HCPCS: 94060; 94726; 94729 ==

== ENCOUNTER 2024-05-27 10:46 | Emergency (ER) | payer MEDICARE, OTHER, SELFPAY ==
[2024-05-27 11:22] VITALS: BP 198/91; PULSE 70; RESP 22; TEMP 36.9; O2SAT 94; BMI 19.8
--- NOTE | 2024-05-27 11:28 | DI.CT.S_ITS ---
PROCEDURE: CT CERVICAL SPINE WO CON INDICATIONS: fall/hit head/no thinners TECHNIQUE: Noncontrast 3 mm thick sections acquired from the skull base to the T4 level. Sagittal and coronal reformats were then constructed. For radiation dose reduction, the following was used: automated exposure control, adjustment of mA and/or kV according to patient size. COMPARISON: [facility], CT, CT SOFT TISSUE NECK W CON, 03/17/2020, 13:51. FINDINGS: Image quality: Diagnostic Bones: There is trace anterolisthesis of C2 on C3 and C3 on C4 which is likely degenerative and not changed from prior imaging. Straightening of the normal cervical lordosis also similar to prior. Lccm-mb-ijfyzlrb overall spondylosis. No acute vertebral body height loss or traumatic subluxation. Soft tissues: Vascular calcifications. Emphysematous changes at the lung apices. IMPRESSION: No displaced fracture or traumatic subluxation. Background degenerative changes. If there is high concern for further derangement, consider MRI evaluation. Dictated by: Pierce Ellison M.D. on 05/27/2024 at 11:56 Approved by: Pierce Ellison M.D. on 05/27/2024 at 11:58
--- NOTE | 2024-05-27 11:28 | DI.CT.S_ITS ---
PROCEDURE: CT HEAD/BRAIN WO CON INDICATIONS: fall/hit head/no thinners TECHNIQUE: Noncontrast 4.5 mm thick angled axial sections acquired from the foramen magnum to the vertex, with coronal and sagittal reformats. For radiation dose reduction, the following was used: automated exposure control, adjustment of mA and/or kV according to patient size. COMPARISON: None. FINDINGS: Image quality: Diagnostic. CSF spaces: Basal cisterns are patent. No extra-axial fluid collections. The ventricles are symmetric in size and shape. Brain: No intracranial bleeds or masses. There is cerebral volume loss for age, with resultant ventricular and sulcal prominence. There are periventricular and deep white matter chronic small vessel ischemic changes. There is intracranial internal carotid artery atherosclerosis. Skull and face: Calvarium and visualized facial bones appear intact, without suspicious lesions. Sinuses: Mucosal thickening in the left maxillary sinus and left ethmoid air cells. mastoids are clear. IMPRESSION: No acute intracranial pathology. Dictated by: Nuzhat Fox MD, PhD on 05/27/2024 at 11:51 Approved by: Nuzhat Fxo MD, PhD on 05/27/2024 at 11:53
--- NOTE | 2024-05-27 11:28 | DI.RAD.S_ITS ---
PROCEDURE: XR CHEST 1V INDICATIONS: Shortness of breath TECHNIQUE: One view of the chest was acquired. COMPARISON: [facility], CT, CT CERVICAL SPINE WO CON, 05/27/2024, 11:37. [facility], CR, XR CHEST 2V, 05/17/2022, 12:03. [facility], CR, XR CHEST 2V, 12/11/2021, 11:53. FINDINGS: Surgical changes and devices: Right axillary clips. Left breast clips Lungs and pleura: Lungs are clear. No pleural effusions or pneumothorax. Mediastinum: Mediastinal contours appear normal. Heart size is normal. Bones and chest wall: No suspicious bony lesions. Overlying soft tissues appear unremarkable. IMPRESSION: No acute cardiopulmonary abnormality is seen. Dictated by: Ezra Suazo M.D. on 05/27/2024 at 11:46 Approved by: Ezra Suazo M.D. on 05/27/2024 at 11:54
[2024-05-27 11:54] LABS: Urine Volume 10mL (spun)
[2024-05-27 12:04] LABS: Bacteria Urine Many (>30); Culture Indicated Urine Specimen Cultured; RBC Urine None Seen (0-5/HPF); Squamous Epithelial Cell Urine 0-1 /HPF (0-5/HPF); WBC Urine 10-30/HPF (0-5/HPF)
--- NOTE | 2024-05-27 12:07 | EKG_ITS ---
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
--- NOTE | 2024-05-27 12:44 | ED.GENADULT ---
HPI - General Adult General Chief complaint: Shortness of Breath/Dyspnea Stated complaint: Fall 1week ago - confusion/back pain;pneumonia f/u Time Seen by Provider: 05/27/24 12:43 Source: patient and family Mode of arrival: Ambulatory History of Present Illness HPI narrative: 74-year-old woman with a history of COPD, osteoporosis, prior breast cancer, depression with mild memory impairment recent diagnosis of pneumonia on May 09 with completed course of Augmentin presents reporting that she fell a week ago. Reportedly hit her head there was no loss of consciousness, she has not anticoagulated, she is having left lower back pain increasing confusion abdominal pain productive cough and daughter is concerned with increase in overall repetitive questions. She also complains of lump in her upper abdomen that she noted yesterday. Since her fall she has been having some left paraspinous pain without difficulty walking. No fevers, no dysuria no paresthesias Related Data Home Medications Medication Instructions Recorded Confirmed [id number] 1 cap PO Q DAY ##0 04/07/12 11/14/23 (Multiple Vitamin, Womens tablet) cyanocobalamin (vitamin B-12) 1,200 mcg PO .COMPLEX 07/25/19 11/14/23 1,000 mcg tablet (Vitamin B-12) Vitamin C 1,000 mg PO Q DAY ##0 05/08/20 11/14/23 Vitamin D3 2,000 unit PO Q DAY ##0 05/08/20 11/14/23 calcium carbonate 600 mg PO BID 05/08/20 11/14/23 turmeric root extract 500 mg 500 mg PO BID 05/08/20 11/14/23 capsule donepezil 5 mg tablet 5 mg PO BEDTIME 12/01/23 Previous Rx's Medication Instructions Recorded betamethasone valerate 0.1 % 1 applic topical BID PRN rash #45 09/29/23 topical cream grams methylprednisolone 4 mg tablets in See Rx Instructions PO PER PKG DIR 11/14/23 a dose pack #21 ea albuterol sulfate 90 mcg/actuation 2 puff inhalation Q4-6H PRN 12/15/23 aerosol inhaler shortness of breath or wheezing #8.5 grams fluticasone propionate 230 2 puff inhalation BID #36 grams 12/15/23 mcg-salmeterol 21 mcg/actuation HFA inhaler (Advair HFA) alendronate 35 mg tablet See Rx Instructions .Route 12/17/23 .COMPLEX #12 tabs lovastatin 20 mg tablet 20 mg PO HS #90 tabs 12/26/23 fluoxetine 40 mg capsule 40 mg PO DAILY #90 caps 12/29/23 omeprazole 20 mg capsule,delayed 20 mg PO DAILY PRN stomach upset 12/29/23 release #90 caps tolterodine 2 mg capsule,extended 2 mg PO DAILY #90 caps 12/29/23 release 24 hr (Detrol LA) lorazepam 0.5 mg tablet 0.5 mg PO DAILY PRN sleep #60 tabs 05/17/24 sulfamethoxazole 800 1 tab PO BID #20 tabs 05/27/24 mg-trimethoprim 160 mg tablet (Bactrim DS) Allergies Allergy/AdvReac Type Severity Reaction Status Date / Time propoxyphene Allergy Mild RASH, HIVES Verified 11/14/23 11:08 Review of Systems Review of Systems Narrative: Pertinent positive and negative findings as per HPI Patient History Medical History (Updated 05/27/24 @ 15:28 by Katey Shine MD) Depression Left upper quadrant abdominal mass COPD (chronic obstructive pulmonary disease) History of adenomatous polyp of colon Urinary incontinence Personal history of breast cancer Memory impairment Ventral hernia Kidney cysts Malignant neoplasm of breast (female), unspecified site (12/18/10) Other and unspecified hyperlipidemia (12/20/10) Unspecified hereditary and idiopathic peripheral neuropathy (09/28/11) Umbilical hernia History of basal cell carcinoma (BCC) excision (11/04/16) Osteoporosis (06/15/15) Surgical History History of total mastectomy Status post cholecystectomy Status post breast lumpectomy Status post appendectomy History of total mastectomy Family History Father Cancer Grandfather Heart disease Social History household members: none Smoking Status: Former smoker alcohol intake: former Smoking Status: Former smoker Exam Initial Vital Signs Initial Vital Signs: Vital Signs Temperature 98.5 F 05/27/24 11:22 Pulse Rate 70 05/27/24 11:22 Respiratory Rate 22 05/27/24 11:22 Blood Pressure 198/91 H 05/27/24 11:22 Pulse Oximetry 94 05/27/24 11:22 Oxygen Delivery Method Room Air 05/27/24 11:22 General: Healthy appearing, in no acute distress. Well-nourished well-developed HEENT: Moist mucous membranes, normal sclera with reactive pupils, Respiratory: Lungs are clear to auscultation, no wheezing no rales no rhonchi. Full and symmetrical air movement Cardiac: Regular rate and rhythm no murmurs no bruits Abdomen: Soft, she has a nontender freely mobile mass in the upper epigastrium palpable at 3 x 5 cm that is not a hernia and is the ?lump in her stomach she was concerned about, Skin: Warm and dry, no rashes Neurologic: Grossly neurologically intact with no obvious asymmetries or abnormalities Extremities: No trauma, well perfused Psych: Cooperative, appropriate insight and affect Course Orders Ordered: ED Orders 05/27/24 11:28 CT cervical spine wo con Stat CT head/brain wo con Stat XR chest 1V Stat EKG-12 Lead Stat Measure peak expiratory flow ONCE RT Consult Eval and Treat NOW 05/27/24 11:38 Urine Culture Stat Urine Microscopic Stat 05/27/24 11:45 Complete Blood Count AUTO DIFF Stat Comprehensive Metabolic Panel Stat Lactate (Lactic Acid) Stat NT-proBNP (BNP-Adult 18+) Stat Prothrombin Time INR Stat Troponin I Stat 05/27/24 14:07 CT abdomen pelvis w con Stat Discontinued Medications Trimethoprim/Sulfamethoxazole (Trimeth/Sulfa 160/800 (Ds) Tablet) 1 tab PO NOW ONE Stop: 05/27/24 13:10 Vital Signs Vital signs: Vital Signs - 8 hr 05/27/24 11:22 05/27/24 15:05 Temperature 98.5 F Pulse Rate 70 64 Respiratory Rate 22 14 Blood Pressure 198/91 H 180/75 H Pulse Oximetry 94 98 Oxygen Delivery Method Room Air Room Air Medical Decision Making Lab Data 05/27/24 11:45 05/27/24 11:45 Labs: Lab Results 05/27/24 05/27/24 Range/Units 11:38 11:45 WBC 6.1 (4.5-11.0) X10^3/uL RBC 4.32 (4.0-5.2) X10^6/uL Hgb 13.5 (12.0-16.0) g/dL Hct 39.2 (36-46) % MCV 90.7 (80-100) fL MCH 31.2 (26-34) PG MCHC 34.4 (30-36) % RDW 13.6 (11.6-14.8) % Plt Count 301 (150-400) X10^3/uL Neut % (Auto) 47.2 L (50-75) % Lymph % (Auto) 34.9 (25-40) % [place] % (Auto) 14.5 H (3-14) % Eos % (Auto) 2.7 (2-4) % Baso % (Auto) 0.7 (0-2) % Neut # (Auto) 2900 (2194-7962) /uL Lymph # (Auto) 2100 (6208-0212) /uL [place] # (Auto) 900 (0-900) /uL Eos # (Auto) 200 (0-450) /uL Baso # (Auto) 0 (0-100) /uL PT 10.4 (9.4-12.5) SECONDS INR 0.9 (0.9-1.3) Sodium 136 L (137-145) mmol/L Potassium 3.4 (3.4-5.1) mmol/L Chloride 108 H (98-107) mmol/L Carbon Dioxide 22 (22-32) mmol/L BUN 6 L (7-17) mg/dL Creatinine 0.56 (0.52-1.04) mg/dL Estimated GFR > 60 (>60) mL/min BUN/Creatinine Ratio 10.7 (6-22) Glucose 90 (80-110) mg/dL Lactate 0.9 (0.7-2.1) mmol/L Calcium 9.1 (8.4-10.2) mg/dL Total Bilirubin 0.4 (0.2-1.3) mg/dL AST 35 (14-36) IU/L ALT 26 (<35) IU/L Alkaline Phosphatase 86 (38-126) U/L Troponin I < 0.012 (0.01-0.034) ng/mL NT-Pro-B Natriuret Pep 820 H (<450) pg/mL Total Protein 6.3 (6.3-8.2) g/dL Albumin 4.1 (3.5-5.0) g/dL Globulin 2.2 (1.7-4.1) g/dL Albumin/Globulin Ratio 1.9 (1.0-2.8) Urine RBC None seen (0-5/HPF) Urine WBC 10-30/hpf H (0-5/HPF) Ur Squamous Epith Cells 0-1 /hpf (0-5/HPF) Urine Bacteria Many (>30) H (None) Ur Culture Indicated? Specimen cultured Vol Urine Centrifuged 10ml (spun) Urine Dip Bedside Urine Glucose Negative Bedside Urine Bilirubin - Negative Bedside Urine Ketone - Negative Urine Specific [place] 1.015 Bedside Urine Occult Blood - Negative Bedside Urine pH 6.0 Bedside Urine Protein - Negative Bedside Urine Urobilinogen - Negative Bedside Urine Nitrite + Positive Bedside Urine Leukocytes +++ 500 Esterase Point of care testing: Urine Dip Bedside Urine Glucose Negative Bedside Urine Bilirubin - Negative Bedside Urine Ketone - Negative Urine Specific [place] 1.015 Bedside Urine Occult Blood - Negative Bedside Urine pH 6.0 Bedside Urine Protein - Negative Bedside Urine Urobilinogen - Negative Bedside Urine Nitrite + Positive Bedside Urine Leukocytes +++ [address] scan - abdomen/pelvis: Radiologist's Impression: PROCEDURE: CT ABDOMEN PELVIS W CON INDICATIONS: abd pain TECHNIQUE: After the administration of intravenous contrast, axial sections acquired from the lung bases to the pubic symphysis. Coronal and sagittal reformats were performed. For radiation dose reduction, the following was used: automated exposure control, adjustment of mA and/or kV according to patient size. COMPARISON: [facility], CT, CT ABDOMEN PELVIS W CON, 07/06/2022, 11:49. FINDINGS: Image quality: Diagnostic. Lower Chest: Left basilar atelectasis is seen. Heart size is mildly enlarged, no pericardial effusion. ABDOMEN: Liver: No solid mass. Lobulated liver contour is seen, concerning for cirrhosis. Gallbladder: Gallbladder is surgically absent. Biliary ducts: No biliary dilation. Pancreas: No ductal dilation. Spleen: Size is within normal limits. Adrenal Glands: 2.1 x 1.3 cm hypodense left adrenal nodule is again seen not significantly changed in size compared to previous study series 2, image 28. Kidneys and Ureters: No hydronephrosis. No solid mass. Simple appearing large right renal cyst is again seen unchanged from prior study. Additional smaller bilateral simple appearing renal cysts are also noted and are unchanged. Nonobstructing stone in lower pole right kidney is seen measures 8 x 5 millimeter in size series 2, image 50. No abscess collection. Stomach and Bowel: There is no bowel obstruction. No gross small bowel or gastric wall thickening. Questionable left-sided colonic wall thickening is seen with mild pericolonic fat stranding. Small amount of free fluid is noted in left upper quadrant abdomen. Peritoneum: Small amount of free fluid in left upper quadrant abdomen is seen. No free air. Ventral Wall: No significant ventral hernia. Patient's known 1.4 cm soft tissue density nodule in midline anterior abdominal wall remains unchanged in size and appearance series 2, image 45. Abdominal Nodes: No retroperitoneal or mesenteric adenopathy by size criteria. Vessels: Aorta and inferior vena cava are normal in size. PELVIS: Pelvic Organs: Unremarkable. Bladder: No bladder wall thickening, accounting for underdistention. Pelvic Nodes: No enlarged lymph nodes. Miscellaneous: No inguinal hernias are seen. Bones: No aggressive osseous abnormality. IMPRESSION: 1. Suggestion of predominantly left-sided colonic wall thickening concerning for low-grade colitis. No bowel obstruction. No abscess collection. No peritoneal free air. 2. Small amount of free fluid in left upper quadrant abdomen. Lobulated liver contour which may indicate cirrhosis. No discrete hepatic lesion is seen. 3. Stable size of left adrenal nodule and may represent benign adrenal adenoma. 4. Bilateral renal cysts unchanged from prior study. Simple appearing right renal cysts. No hydronephrosis or hydroureter. Dictated by: Venkatesh Goldsmith M.D. on 05/27/2024 at 14:38 MDM Narrative Medical decision making narrative: CC: Increased confusion, fall a week ago, abdominal lump Complicating co-morbidities: Brought in by her daughter, concern for increased confusion with perseverating questions, she has been treated for early Alzheimer's, low back pain, confusion is concurrent with fall with head injury about a week and a half ago Data collected from: patient, daughter Differential considered: Subdural hematoma, metastatic disease (prior history of breast cancer), compression fracture, intra-abdominal hemorrhage Exam documented above, pertinent findings include: Patient is in no acute distress. She is able to answer questions GCS of 15. Lungs are clear abdomen has a palpable 3 x 5 cm mass in the upper abdomen that is not tender. She does not have any thoracic or lumbar spine point tenderness to suggest new compression fracture. There is some minor paraspinous spasm on the left side. No suprapubic tenderness Lab Test results independently reviewed as above. Pertinent findings: CBC is unremarkable Urine has white blood cells and bacteria with no squamous cells or red cells, presumed urinary tract infection we will treat Independently reviewed EKG: EKG shows a rate of 63 with LVH criteria but no acute ischemia Imaging studies independently reviewed: CT of the head and cervical spine show no acute findings or fractures Chest x-ray is benign Because of the ?new lump in the front of her abdomen, CT scan was ordered. There is a note that patient has ?known 1.4 cm soft tissue density nodule in the midline anterior abdominal wall remains unchanged, I suspect that is what I was palpating. Also a ?suggestion of predominantly left-sided colonic wall thickening concerning for low-grade colitis. This does not fit with her clinical exam Consultations: Treatments: Bactrim orally for presumed UTI Re-evaluations: Discussion: 74-year-old woman presents with complaints of left lower back pain and increased confusion for fall week and a half ago. CT scan of the head and cervical spine are unremarkable. Physical exam of the lumbar spine pelvis and hips unremarkable. She does have some minor left paraspinous muscle spasm. Patient was concerned about a new finding in her abdomen with a palpable soft tissue mass noted. CT scan did not confirm any severe pathology but did note prior subcutaneous nodule in the likely is what I am palpating. Incidentally noted is urine sample with significant white cells and bacteria. We will opt to treat her with Bactrim. Currently no signs of recurrent pneumonia, intracranial hemorrhage or alternate explanation that would require hospitalization. She clearly is having some musculoskeletal pain secondary to her recent fall discuss appropriate pain control. She is safe for discharge home Discharge Plan Departure Patient Disposition: Home Clinical Impression: Acute UTI Low back strain Qualifiers: Encounter type: initial encounter Qualified Code(s): S39.012A - Strain of muscle, fascia and tendon of lower back, initial encounter Fall Qualifiers: Encounter type: initial encounter Qualified Code(s): W19.XXXA - Unspecified fall, initial encounter Instructions: DI for Urinary Tract Infection (UTI) Activity Restrictions/Additional Instructions: Thank you for coming in today There was no bleeding or abnormalities appreciated any a brain after your fall. Your low back is a mechanical strain from your fall with no fractures. It is going to get better but you are going to continue to have some pain in that area. Using 400 mg of ibuprofen (2 bohw-xwk-snmwlve pills) and 1 Tylenol every 6 hours can be very helpful in controlling pain. Incidentally, we noted what looks like a bladder infection and I am going to suggest we treat this with Bactrim, given complicated bladder infections previously I am going to suggest 10 days. This prescription was electronically transmitted to [facility] The mass you can feel in your upper abdomen has actually been there for quite awhile, it is not a cancer it is not going to cause problems and if it hurts when you press on it, please stop pressing on it ;) If you find that you are getting worse or develop any new symptoms, please feel free to return to the emergency department for further evaluation. Prescriptions: New sulfamethoxazole-trimethoprim [Bactrim DS] 800-160 mg tablet 1 tab PO BID Qty: 20 0RF No Action Multiple Vitamin, Womens Tablet 1 cap PO Q DAY Qty: 0 cyanocobalamin (vitamin B-12) [Vitamin B-12] 1,000 mcg tablet 1,200 mcg PO .COMPLEX Rx Instructions: 1,200 mcg PO 3 times a week; Vitamin C 1,000 mg PO Q DAY Qty: 0 Vitamin D3 2,000 unit PO Q DAY Qty: 0 betamethasone valerate 0.1 % cream 1 applic topical BID PRN (Reason: rash) Qty: 45 0RF donepezil 5 mg tablet 5 mg PO BEDTIME Advair HFA 230-21 mcg/actuation HFA aerosol inhaler 2 puff inhalation BID Qty: 36 3RF Rx Instructions: administer with spacer albuterol sulfate 90 mcg/actuation HFA aerosol inhaler 2 puff inhalation Q4-6H PRN (Reason: shortness of breath or wheezing) Qty: 8.5 4RF alendronate 35 mg tablet See Rx Instructions .ROUTE .COMPLEX Qty: 12 3RF Dose Instruction: Take 1 tablet by mouth once a week Rx Instructions: Take 1 tablet by mouth once a week lovastatin 20 mg tablet 20 mg PO HS Qty: 90 3RF omeprazole 20 mg capsule,delayed release(DR/EC) 20 mg PO DAILY PRN (Reason: stomach upset) Qty: 90 3RF fluoxetine 40 mg capsule 40 mg PO DAILY Qty: 90 3RF tolterodine [Detrol LA] 2 mg capsule,extended release 24hr 2 mg PO DAILY Qty: 90 3RF lorazepam 0.5 mg tablet 0.5 mg PO DAILY PRN (Reason: sleep) Qty: 60 1RF Rx Instructions: Take one tablet once daily at bedtime as needed for sleep. calcium carbonate 600 mg calcium (1,500 mg) tablet 600 mg PO BID turmeric root extract 500 mg capsule 500 mg PO BID methylprednisolone 4 mg tablets,dose pack See Rx Instructions PO PER PKG DIR Qty: 21 0RF Rx Instructions: PO PER PKG DIR Referrals: Nguyễn Robert MD [Primary Care Provider] - Stand Alone Forms: Patient Portal/API/Survey
[2024-05-27 12:56] LABS: Add Manual Diff / Slide Review NO; Basophils Absolute Auto 0 /uL (0-100); Basophils Percent Auto 0.7 % (0-2); Eosinophils Absolute Auto 200 /uL (0-450); Eosinophils Percent Auto 2.7 % (2-4); Hematocrit 39.2 % (36-46); Hemoglobin 13.5 g/dL (12.0-16.0); Lymphocytes Absolute Auto 2100 /uL (1100-4500); Lymphocytes Percent Auto 34.9 % (25-40); Mean Corpuscular HGB Conc 34.4 % (30-36); Mean Corpuscular Hemoglobin 31.2 PG (26-34); Mean Corpuscular Volume 90.7 fL (80-100); Monocytes Absolute Auto 900 /uL (0-900); Monocytes Percent Auto 14.5 % (3-14); Neutrophils Absolute Auto 2900 /uL (1500-7000); Neutrophils Percent Auto 47.2 % (50-75); Platelet Count 301 X10^3/uL (150-400); Red Blood Cell Count 4.32 X10^6/uL (4.0-5.2); Red Cell Distribution Width 13.6 % (11.6-14.8); White Blood Cell Count 6.1 X10^3/uL (4.5-11.0)
[2024-05-27 13:04] LABS: INR 0.9 (0.9-1.3); Prothrombin Time 10.4 SECONDS (9.4-12.5)
[2024-05-27 13:10] LABS: Alanine Aminotransferase 26 IU/L (<35); Albumin 4.1 g/dL (3.5-5.0); Albumin Globulin Ratio 1.9 (1.0-2.8); Alkaline Phosphatase 86 U/L (38-126); Aspartate Aminotransferase 35 IU/L (14-36); BUN Creatinine Ratio 10.7 (6-22); Bilirubin Total 0.4 mg/dL (0.2-1.3); Blood Urea Nitrogen 6 mg/dL (7-17); Calcium 9.1 mg/dL (8.4-10.2); Carbon Dioxide 22 mmol/L (22-32); Chloride 108 mmol/L (98-107); Estimated Glomerular Filt Rate > 60 mL/min (>60); Globulin 2.2 g/dL (1.7-4.1); Glucose 90 mg/dL (80-110); HEMOLYSIS < 15 (0-50); Potassium 3.4 mmol/L (3.4-5.1); Sodium 136 mmol/L (137-145); Total Protein 6.3 g/dL (6.3-8.2)
[2024-05-27 13:11] LABS: Lactate (Lactic Acid) 0.9 mmol/L (0.7-2.1)
[2024-05-27 13:20] LABS: NT-proBNP (BNP-Adult 18+) 820 pg/mL (<450); Troponin I < 0.012 ng/mL (0.01-0.034)
--- NOTE | 2024-05-27 14:07 | DI.CT.S_ITS ---
PROCEDURE: CT ABDOMEN PELVIS W CON INDICATIONS: abd pain TECHNIQUE: After the administration of intravenous contrast, axial sections acquired from the lung bases to the pubic symphysis. Coronal and sagittal reformats were performed. For radiation dose reduction, the following was used: automated exposure control, adjustment of mA and/or kV according to patient size. COMPARISON: [facility], CT, CT ABDOMEN PELVIS W CON, 07/06/2022, 11:49. FINDINGS: Image quality: Diagnostic. Lower Chest: Left basilar atelectasis is seen. Heart size is mildly enlarged, no pericardial effusion. ABDOMEN: Liver: No solid mass. Lobulated liver contour is seen, concerning for cirrhosis. Gallbladder: Gallbladder is surgically absent. Biliary ducts: No biliary dilation. Pancreas: No ductal dilation. Spleen: Size is within normal limits. Adrenal Glands: 2.1 x 1.3 cm hypodense left adrenal nodule is again seen not significantly changed in size compared to previous study series 2, image 28. Kidneys and Ureters: No hydronephrosis. No solid mass. Simple appearing large right renal cyst is again seen unchanged from prior study. Additional smaller bilateral simple appearing renal cysts are also noted and are unchanged. Nonobstructing stone in lower pole right kidney is seen measures 8 x 5 millimeter in size series 2, image 50. No abscess collection. Stomach and Bowel: There is no bowel obstruction. No gross small bowel or gastric wall thickening. Questionable left-sided colonic wall thickening is seen with mild pericolonic fat stranding. Small amount of free fluid is noted in left upper quadrant abdomen. Peritoneum: Small amount of free fluid in left upper quadrant abdomen is seen. No free air. Ventral Wall: No significant ventral hernia. Patient's known 1.4 cm soft tissue density nodule in midline anterior abdominal wall remains unchanged in size and appearance series 2, image 45. Abdominal Nodes: No retroperitoneal or mesenteric adenopathy by size criteria. Vessels: Aorta and inferior vena cava are normal in size. PELVIS: Pelvic Organs: Unremarkable. Bladder: No bladder wall thickening, accounting for underdistention. Pelvic Nodes: No enlarged lymph nodes. Miscellaneous: No inguinal hernias are seen. Bones: No aggressive osseous abnormality. IMPRESSION: 1. Suggestion of predominantly left-sided colonic wall thickening concerning for low-grade colitis. No bowel obstruction. No abscess collection. No peritoneal free air. 2. Small amount of free fluid in left upper quadrant abdomen. Lobulated liver contour which may indicate cirrhosis. No discrete hepatic lesion is seen. 3. Stable size of left adrenal nodule and may represent benign adrenal adenoma. 4. Bilateral renal cysts unchanged from prior study. Simple appearing right renal cysts. No hydronephrosis or hydroureter. Dictated by: Venkatesh Goldsmith M.D. on 05/27/2024 at 14:38 Approved by: Venkatesh Goldsmith M.D. on 05/27/2024 at 14:52
[2024-05-27 15:05] VITALS: BP 180/75; PULSE 64; RESP 14; O2SAT 98
[2024-05-27] MEDS: KETOROLAC 30 MG/ML VIAL 15 MG IV (15:19)
[2024-05-27] MEDS: TRIMETH/SULFA 160/800 (DS) TABLET 1 TAB PO (15:19)
--- NOTE | 2024-05-27 15:21 | PC.NURSE ---
iv placed by another nurse
== END 2024-05-27 15:40 | disposition home or self-care (01) ==
PROVIDERS: Emergency Provider Emergency Medicine; Family Provider Internal Medicine; PCP Internal Medicine
DX: S39.012A Strain of muscle, fascia and tendon of lower back, initial encounter (principal); N39.0 Urinary tract infection, site not specified; R05.9 Cough, unspecified; R41.0 Disorientation, unspecified; R06.02 Shortness of breath; W19.XXXA Unspecified fall, initial encounter
CPT/HCPCS: 36415; 70450; 71045; 72125; 74177; 80053; 81003; 81015; 83605; 83880; 84484; 85025; 85610; 87077; 87086; 87186; 93005; 96374; 99284; J1885; Q9967

== ENCOUNTER → 2024-06-07 12:58 | Outpatient (CLI) | payer MEDICARE, OTHER, SELFPAY ==
[2024-06-07 13:20] LABS: Appearance Urine UA CLEAR; Bilirubin Urine UA NEGATIVE (NEGATIVE); Color Urine UA YELLOW; Glucose Urine UA NEGATIVE (Negative); Ketones Urine UA TRACE (NEGATIVE); Leukocyte Esterase Urine UA 1+ (NEGATIVE); Nitrite Urine UA NEGATIVE (Negative); Occult Blood Urine UA NEGATIVE (Negative); Protein Urine UA NEGATIVE (Negative); Specific Gravity Urine UA 1.015 (1.000-1.035); Urobilinogen Urine UA 0.2 E.U./dL (0.2)
[2024-06-07 13:21] LABS: pH Urine UA 5.5 (4.5-8.0)
[2024-06-07 13:22] LABS: Urine Volume 10mL (spun)
[2024-06-07 13:23] LABS: Bacteria Urine None Seen; RBC Urine None Seen (0-5/HPF); Squamous Epithelial Cell Urine 1-5 /HPF (0-5/HPF); WBC Urine 1-5/HPF (0-5/HPF)
== END ==
PROVIDERS: Family Provider Internal Medicine; PCP Internal Medicine; Referring Provider Internal Medicine; Visit Provider Internal Medicine
DX: N39.0 Urinary tract infection, site not specified (principal)
CPT/HCPCS: 81003; 81015; 87077; 87086

== ENCOUNTER → 2024-06-14 11:00 | Outpatient (CLI) | payer MEDICARE, OTHER, SELFPAY ==
[2024-06-14 12:32] LABS: Appearance Urine UA CLEAR; Bilirubin Urine UA NEGATIVE (NEGATIVE); Color Urine UA YELLOW; Glucose Urine UA NEGATIVE (Negative); Ketones Urine UA TRACE (NEGATIVE); Leukocyte Esterase Urine UA TRACE (NEGATIVE); Nitrite Urine UA NEGATIVE (Negative); Occult Blood Urine UA NEGATIVE (Negative); Protein Urine UA TRACE (Negative); Specific Gravity Urine UA 1.025 (1.000-1.035); Urobilinogen Urine UA 0.2 E.U./dL (0.2)
[2024-06-14 12:47] LABS: pH Urine UA 5.5 (4.5-8.0)
[2024-06-14 12:50] LABS: Urine Volume 10mL (spun)
[2024-06-14 12:51] LABS: Bacteria Urine None Seen; Calcium Oxalate Crystals Urine Moderate; Culture Indicated Urine Specimen Cultured; RBC Urine 1-5/HPF (0-5/HPF); Squamous Epithelial Cell Urine None Seen (0-5/HPF); WBC Urine 1-5/HPF (0-5/HPF)
[2024-06-14 12:52] LABS: Cholesterol 182 mg/dL (140-199); HDL Cholesterol 94 mg/dL (40-60); LDL Cholesterol Calculated 76 mg/dL (<100); Triglycerides 61 mg/dL (35-150)
[2024-06-14 13:03] LABS: Free T4, Direct Thyroxine 1.28 ng/dL (0.78-2.19)
[2024-06-14 13:17] LABS: Thyroid Stimulating Hormone 0.706 uIU/mL (0.47-4.68)
== END ==
PROVIDERS: Family Provider Internal Medicine; PCP Internal Medicine; Referring Provider Internal Medicine; Visit Provider Internal Medicine
DX: E78.5 Hyperlipidemia, unspecified (principal); R30.0 Dysuria; J44.9 Chronic obstructive pulmonary disease, unspecified; E03.9 Hypothyroidism, unspecified
CPT/HCPCS: 36415; 80061; 81001; 84439; 84443; 87077; 87086; 87186

== ENCOUNTER → 2024-06-21 12:57 | Outpatient (CLI) | payer MEDICARE, OTHER, SELFPAY | PROVIDERS: Family Provider Internal Medicine; PCP Internal Medicine; Referring Provider Internal Medicine; Visit Provider Internal Medicine | DX: J44.9 Chronic obstructive pulmonary disease, unspecified (principal); Z87.891 Personal history of nicotine dependence; R94.2 Abnormal results of pulmonary function studies | CPT/HCPCS: 94060; 94726; 94729 ==

== ENCOUNTER 2024-10-06 08:42 | Emergency (ER) | payer MEDICARE, OTHER, SELFPAY ==
[2024-10-06] VITALS (23 sets, daily range): BP systolic 160–208; BP diastolic 75–98; PULSE 61–79; RESP 15–32; TEMP 36.6; O2SAT 94–98; BMI 19.8
--- NOTE | 2024-10-06 08:46 | ED_ITS ---
HPI - General Adult General Chief complaint: Dizziness Stated complaint: Feeling Scattered, Off Balance Time Seen by Provider: 10/06/24 08:45 History of Present Illness HPI narrative: Significant PMHx include: dementia, depression, COPD, urinary incontinence, breast cancer, osteoporosis Yolis, a 74-year-old female, presents to the emergency department with complaints of feeling unwell, weak, and unsteady for the past three days. The patient reports experiencing all-over weakness and feeling wonky and off balance. She states that these symptoms began on Friday, and today is Friday. The patient denies fever, chills, congestion, coughing more than usual, chest pain, heaviness in the chest, abdominal pain, nausea, vomiting, diarrhea, or pain when urinating. She reports having COPD but does not use oxygen at home. The patient uses an albuterol inhaler twice daily. She also mentions having Alzheimer's but is still able to manage at home alone. The patient lives by herself and typically walks without assistance, although she has been very unsteady on her feet for the last couple of days. She denies alcohol consumption or use of recreational drugs. The patient was scheduled for rehab today but did not start due to not feeling well. She reports eating and drinking okay and taking all her medications regularly. The patient denies any recent stressors at home. Upon arrival at the emergency department, her blood pressure was noted to be high, over 200, which is not typical for her. She is not currently on any blood pressure medication. Related Data Home Medications Medication Instructions Recorded Confirmed ohykcidqvzoe-Ga-ydox-minerals 1 cap PO Q DAY ##0 04/07/12 09/28/24 (Multiple Vitamin, Womens tablet) cyanocobalamin (vitamin B-12) 1,200 mcg PO .COMPLEX 07/25/19 09/28/24 1,000 mcg tablet (Vitamin B-12) Vitamin C 1,000 mg PO Q DAY ##0 05/08/20 09/28/24 Vitamin D3 2,000 unit PO Q DAY ##0 05/08/20 09/28/24 calcium carbonate 600 mg PO BID 05/08/20 09/28/24 turmeric root extract 500 mg 500 mg PO BID 05/08/20 09/28/24 capsule donepezil 5 mg tablet 5 mg PO BEDTIME 12/01/23 09/28/24 memantine 10 mg tablet 10 mg PO DAILY ALZHEIMERS 06/14/24 09/28/24 Previous Rx's Medication Instructions Recorded betamethasone valerate 0.1 % 1 applic topical BID PRN rash #45 09/29/23 topical cream grams albuterol sulfate 90 mcg/actuation 2 puff inhalation Q4-6H PRN 12/15/23 aerosol inhaler shortness of breath or wheezing #8.5 grams fluticasone propionate 230 2 puff inhalation BID #36 grams 12/15/23 mcg-salmeterol 21 mcg/actuation HFA inhaler (Advair HFA) alendronate 35 mg tablet See Rx Instructions .Route 12/17/23 .COMPLEX #12 tabs lovastatin 20 mg tablet 20 mg PO HS #90 tabs 12/26/23 fluoxetine 40 mg capsule 40 mg PO DAILY #90 caps 12/29/23 omeprazole 20 mg capsule,delayed 20 mg PO DAILY PRN stomach upset 12/29/23 release #90 caps tolterodine 2 mg capsule,extended 2 mg PO DAILY #90 caps 12/29/23 release 24 hr (Detrol LA) lorazepam 0.5 mg tablet 0.5 mg PO DAILY PRN sleep #60 tabs 05/17/24 trazodone 50 mg tablet 50 mg PO BEDTIME #90 tabs 07/12/24 amoxicillin 875 mg-potassium 1 tab PO BID #14 tabs 10/06/24 clavulanate 125 mg tablet lisinopril 10 mg tablet 10 mg PO DAILY #30 tabs 10/06/24 Allergies Allergy/AdvReac Type Severity Reaction Status Date / Time propoxyphene Allergy Mild RASH, HIVES Verified 10/06/24 09:05 nitrofurantoin AdvReac Intermediate Vomiting Verified 10/06/24 09:05 Review of Systems Review of Systems Narrative: All systems reviewed and unremarkable except as noted in the HPI Patient History Medical History (Updated 10/06/24 @ 14:40 by Alexander Singleton MD) Alzheimer's dementia Depression Left upper quadrant abdominal mass COPD (chronic obstructive pulmonary disease) History of adenomatous polyp of colon Urinary incontinence Personal history of breast cancer Memory impairment Ventral hernia Kidney cysts Malignant neoplasm of breast (female), unspecified site (12/18/10) Other and unspecified hyperlipidemia (12/20/10) Unspecified hereditary and idiopathic peripheral neuropathy (09/28/11) Umbilical hernia History of basal cell carcinoma (BCC) excision (11/04/16) Osteoporosis (06/15/15) Surgical History History of total mastectomy Status post cholecystectomy Status post breast lumpectomy Status post appendectomy History of total mastectomy Family History Father Cancer Grandfather Heart disease Social History household members: none alcohol intake: former Exam Narrative Exam Narrative: VS as noted above Focused physical exam as follows: General: Well developed, well nourished, no acute distress HEENT: pink palpebral conjunctiva, anicteric sclera, DALY, dry mucous membranes, no JVD, no cervical lymphadenopathy Lungs: no respiratory distress, clear to auscultation without wheezes or crackles; equal breath sounds Heart: normal rate, regular rhythm, no appreciable murmurs Abdomen: soft, nontender, no rebound or rigidity Musculoskeletal: no gross deformities with full ROM in all extremities, no pedal edema Skin: pink, warm; no rashes Neuro: ?AAOx3, GCS 15, nonfocal exam Psyche: no SI/HI, normal affect Initial Vital Signs Initial Vital Signs: Vital Signs Temperature 98 F 10/06/24 08:52 Pulse Rate 78 10/06/24 08:52 Respiratory Rate 15 10/06/24 08:52 Blood Pressure 208/98 H 10/06/24 08:52 Pulse Oximetry 97 10/06/24 08:52 Oxygen Delivery Method Room Air 10/06/24 08:52 Course Course Course Narrative: Initial VS noted above. ? PMHx, PSHx, Medication list, social history reviewed as noted above. Differential diagnosis considered include (but not limited to) the following: dehydration, symptomatic anemia, ACS, cardiac dysrhythmia, hypo/hyperglycemia, electrolyte imbalance, liver or kidney failure, pneumonia, CHF, COPD exacerbation, UTI, uncontrolled hypertension, worsening dementia, depression, adverse effect/withdrawal from illicit drug/ETOH, hypo/hyperthyroidism Pt interviewed and examined. Neuro exam nonfocal. GCS 15 although not did not know her correct age. Bedside EKG showed no ST elevation or ectopy. Work up initiated. IVF bolus ordered while awaiting studies. BP noted to be high and rechecked still high. Labs reviewed - unremarkable other than dehydration and possible UTI. Rocephin IV ordered. Orthostatic VS checked - stable. BP still high - not on BP meds - will start on Lisinopril 10mg PO - dose given. BP rechecked and improving. Discussed plan of care. Stable for discharge. Orders Ordered: Discontinued Medications Sodium Chloride (Normal Saline 0.9%) 1,000 mls @ 1,000 mls/hr IV BOLUS ONE Stop: 10/06/24 10:23 Last Infusion: 10/06/24 10:58 Dose: Infused Documented By: Admin: 10/06/24 09:33 Dose: 1,000 mls/hr Documented By: ROWAN Ceftriaxone Sodium 1,000 mg/ (Sodium Chloride) 100 mls @ 200 mls/hr IV NOW ONE Stop: 10/06/24 10:45 Last Infusion: 10/06/24 12:06 Dose: Infused Documented By: Admin: 10/06/24 11:22 Dose: 200 mls/hr Documented By: LINDA Lisinopril (Lisinopril 10 Mg Tablet) 10 mg PO NOW ONE Stop: 10/06/24 12:45 Last Admin: 10/06/24 13:18 Dose: 10 mg Documented By: KAMERON Vital Signs Vital signs: Vital Signs - 8 hr 10/06/24 14:00 10/06/24 14:00 10/06/24 14:21 Pulse Rate 61 Respiratory Rate 20 Blood Pressure 175/79 H 189/85 H Pulse Oximetry 98 Oxygen Delivery Method Room Air 10/06/24 14:21 10/06/24 14:22 10/06/24 14:30 Pulse Rate 64 69 61 Respiratory Rate 22 20 26 H Blood Pressure 167/81 H Pulse Oximetry 97 98 97 Oxygen Delivery Method 10/06/24 14:30 10/06/24 14:51 Pulse Rate 63 Respiratory Rate 20 Blood Pressure 160/76 H 160/76 H Pulse Oximetry 96 Oxygen Delivery Method Room Air Medical Decision Making Lab Data 10/06/24 08:58 10/06/24 08:58 Labs: Lab Results 10/06/24 10/06/24 Range/Units 08:58 09:45 WBC 9.0 (4.5-11.0) X10^3/uL RBC 4.45 (4.0-5.2) X10^6/uL Hgb 13.7 (12.0-16.0) g/dL Hct 40.3 (36-46) % MCV 90.6 (80-100) fL MCH 30.8 (26-34) PG MCHC 34.0 (30-36) % RDW 13.2 (11.6-14.8) % Plt Count 240 (150-400) X10^3/uL Neut % (Auto) 59.6 (50-75) % Lymph % (Auto) 24.7 L (25-40) % Isabella % (Auto) 9.8 (3-14) % Eos % (Auto) 4.9 H (2-4) % Baso % (Auto) 1.0 (0-2) % Neut # (Auto) 5400 (1958-5067) /uL Lymph # (Auto) 2200 (4649-6640) /uL Isabella # (Auto) 900 (0-900) /uL Eos # (Auto) 400 (0-450) /uL Baso # (Auto) 100 (0-100) /uL PT 9.9 (9.4-12.5) SECONDS INR 0.9 (0.9-1.3) APTT 39 H (25.1-36.5) SECONDS Sodium 134 L (137-145) mmol/L Potassium 3.9 (3.4-5.1) mmol/L Chloride 102 (98-107) mmol/L Carbon Dioxide 25 (22-32) mmol/L BUN 11 (7-17) mg/dL Creatinine 0.60 (0.52-1.04) mg/dL Estimated GFR > 60 (>60) mL/min BUN/Creatinine Ratio 18.3 (6-22) Glucose 104 H (70-99) mg/dL Lactate 0.6 L (0.7-2.1) mmol/L Calcium 9.7 (8.4-10.2) mg/dL Magnesium 1.7 (1.6-2.3) mg/dL Total Bilirubin 0.3 (0.2-1.3) mg/dL AST 23 (14-36) IU/L ALT 15 (<35) IU/L Alkaline Phosphatase 105 (38-126) U/L Total Creatine Kinase 46 (30-135) U/L Troponin I < 0.012 (0.01-0.034) ng/mL NT-Pro-B Natriuret Pep 552 H (<450) pg/mL Total Protein 6.4 (6.3-8.2) g/dL Albumin 4.2 (3.5-5.0) g/dL Globulin 2.2 (1.7-4.1) g/dL Albumin/Globulin Ratio 1.9 (1.0-2.8) Lipase 152 (23-300) U/L TSH 1.69 (0.47-4.68) uIU/mL Urine Color Yellow Urine Appearance Sl cloudy Urine pH 5.5 (4.5-8.0) Ur Specific Soper 1.025 (1.000-1.035) Urine Protein Negative (Negative) Urine Glucose (UA) Negative (Negative) g/dL Urine Ketones Negative (NEGATIVE) Urine Occult Blood 1+ H (Negative) Urine Nitrate Positive H (Negative) Urine Bilirubin Negative (NEGATIVE) Urine Urobilinogen 0.2 (0.2) E.U./dL Ur Leukocyte Esterase 1+ H (NEGATIVE) Urine RBC 1-5/hpf (0-5/HPF) Urine WBC 5-10/hpf H (0-5/HPF) Ur Squamous Epith Cells 1-5 /hpf (0-5/HPF) Urine Bacteria Many (>30) H (None) Ur Culture Indicated? Specimen cultured Vol Urine Centrifuged 10ml (spun) ECG Data Attestation: I personally reviewed and interpreted this ECG as follows: (0852 - NSR @ 79; LVH by voltage; QTc 417; no STTW changes) MDM Narrative Medical decision making narrative: MDM HPI, PMHx, PSHx, Medication list, Allergies, ROS and Focused exam were reviewed above. Differential diagnosis as noted above. Social determinants affecting care considered (as listed). All of these were taken into consideration warranting above listed work up. Consultations as deemed necessary were documented above (if listed). Labs (if ordered and noted above) were independently reviewed by me. Imaging studies (if ordered and noted above) were independently reviewed by me EKG (if noted above) was independently reviewed by me External documents (if reviewed) are documented above Discharge Plan Departure Patient Disposition: Home Clinical Impression: Acute dehydration, Benign essential hypertension Acute cystitis Qualifiers: Hematuria presence: without hematuria Qualified Code(s): N30.00 - Acute cystitis without hematuria Fatigue Qualifiers: Fatigue type: unspecified Qualified Code(s): R53.83 - Other fatigue Instructions: Essential Hypertension, DI for Urinary Tract Infection (UTI) Activity Restrictions/Additional Instructions: Work up was generally reassuring. You were found to be mildly dehydrated and have evidence of a UTI. Drink plenty of fluids. Eat at regular intervals. Complete antibiotic course. Take Lisinopril daily for high blood pressure. Follow up with your regular doctor as needed. Return to the ER if with worsening symptoms. Prescriptions: New amoxicillin-pot clavulanate 875-125 mg tablet 1 tab PO BID Qty: 14 0RF lisinopril 10 mg tablet 10 mg PO DAILY Qty: 30 0RF No Action Multiple Vitamin, Womens Tablet 1 cap PO Q DAY Qty: 0 cyanocobalamin (vitamin B-12) [Vitamin B-12] 1,000 mcg tablet 1,200 mcg PO .COMPLEX Rx Instructions: 1,200 mcg PO 3 times a week; Vitamin C 1,000 mg PO Q DAY Qty: 0 Vitamin D3 2,000 unit PO Q DAY Qty: 0 betamethasone valerate 0.1 % cream 1 applic topical BID PRN (Reason: rash) Qty: 45 0RF donepezil 5 mg tablet 5 mg PO BEDTIME Advair HFA 230-21 mcg/actuation HFA aerosol inhaler 2 puff inhalation BID Qty: 36 3RF Rx Instructions: administer with spacer albuterol sulfate 90 mcg/actuation HFA aerosol inhaler 2 puff inhalation Q4-6H PRN (Reason: shortness of breath or wheezing) Qty: 8.5 4RF alendronate 35 mg tablet See Rx Instructions .ROUTE .COMPLEX Qty: 12 3RF Dose Instruction: Take 1 tablet by mouth once a week Rx Instructions: Take 1 tablet by mouth once a week lovastatin 20 mg tablet 20 mg PO HS Qty: 90 3RF omeprazole 20 mg capsule,delayed release(DR/EC) 20 mg PO DAILY PRN (Reason: stomach upset) Qty: 90 3RF fluoxetine 40 mg capsule 40 mg PO DAILY Qty: 90 3RF tolterodine [Detrol LA] 2 mg capsule,extended release 24hr 2 mg PO DAILY Qty: 90 3RF lorazepam 0.5 mg tablet 0.5 mg PO DAILY PRN (Reason: sleep) Qty: 60 1RF Rx Instructions: Take one tablet once daily at bedtime as needed for sleep. calcium carbonate 600 mg calcium (1,500 mg) tablet 600 mg PO BID turmeric root extract 500 mg capsule 500 mg PO BID memantine 10 mg tablet 10 mg PO DAILY trazodone 50 mg tablet 50 mg PO BEDTIME Qty: 90 3RF Referrals: Nguyễn Robert MD [Primary Care Provider] - Stand Alone Forms: Patient Portal/API/Survey
--- NOTE | 2024-10-06 08:50 | EKG_ITS ---
[address] [address] Test Date: 2024-10-06 Pat Name: Yolis Antonio Department: Room: Gender: Female De Icer: TELLO : 1950 Requested By: Order Number: [id number] Reading MD: Nguyễn Robert MD Measurements Intervals [place] Rate: 79 P: [place]: QRS: 56 QRSD: 90 T: 39 QT: 364 QTc: 417 Interpretive Statements Sinus Rhythm Moderate voltage criteria for LVH, may be normal variant ( Sokolow-Heck , [place] product ) ST & T wave abnormality, consider anterior ischemia NO SIGNIFICANT CHANGE FROM PRIOR TRACING Electronically Signed On 10-07-2024 7:20:08 PDT by Nguyễn Robert MD
--- NOTE | 2024-10-06 09:01 | DI.RAD.S_ITS ---
PROCEDURE: XR CHEST 1V INDICATIONS: Chest Pain TECHNIQUE: One view of the chest was acquired. COMPARISON: [facility], CR, XR CHEST 1V, 05/27/2024, 11:29. [facility], CR, XR CHEST 2V, 05/17/2022, 12:03. FINDINGS: Surgical changes and devices: Right chest wall surgical clips. Left breast clips Lungs and pleura: Lungs are clear. No pleural effusions or pneumothorax. Mediastinum: Mediastinal contours appear normal. Heart size is normal. Bones and chest wall: No suspicious bony lesions. Overlying soft tissues appear unremarkable. IMPRESSION: No acute cardiopulmonary abnormality is seen. Dictated by: Tony Ervin M.D. on 10/06/2024 at 9:18 Approved by: Tony Ervin M.D. on 10/06/2024 at 9:20
[2024-10-06 09:06] LABS: Add Manual Diff / Slide Review NO; Basophils Absolute Auto 100 /uL (0-100); Eosinophils Absolute Auto 400 /uL (0-450); Eosinophils Percent Auto 4.9 % (2-4); Hematocrit 40.3 % (36-46); Hemoglobin 13.7 g/dL (12.0-16.0); Lymphocytes Absolute Auto 2200 /uL (1100-4500); Lymphocytes Percent Auto 24.7 % (25-40); Mean Corpuscular Hemoglobin 30.8 PG (26-34); Mean Corpuscular Volume 90.6 fL (80-100); Monocytes Absolute Auto 900 /uL (0-900); Monocytes Percent Auto 9.8 % (3-14); Neutrophils Absolute Auto 5400 /uL (1500-7000); Neutrophils Percent Auto 59.6 % (50-75); Platelet Count 240 X10^3/uL (150-400); Red Blood Cell Count 4.45 X10^6/uL (4.0-5.2); Red Cell Distribution Width 13.2 % (11.6-14.8)
[2024-10-06 09:11] LABS: INR 0.9 (0.9-1.3); Prothrombin Time 9.9 SECONDS (9.4-12.5)
[2024-10-06 09:13] LABS: PTT Partial Thromboplastin Tim 39 SECONDS (25.1-36.5)
[2024-10-06 09:16] LABS: Lactate (Lactic Acid) 0.6 mmol/L (0.7-2.1)
[2024-10-06 09:17] LABS: Alanine Aminotransferase 15 IU/L (<35); Albumin 4.2 g/dL (3.5-5.0); Albumin Globulin Ratio 1.9 (1.0-2.8); Alkaline Phosphatase 105 U/L (38-126); Aspartate Aminotransferase 23 IU/L (14-36); BUN Creatinine Ratio 18.3 (6-22); Bilirubin Total 0.3 mg/dL (0.2-1.3); Blood Urea Nitrogen 11 mg/dL (7-17); Calcium 9.7 mg/dL (8.4-10.2); Carbon Dioxide 25 mmol/L (22-32); Chloride 102 mmol/L (98-107); Creatine Kinase 46 U/L (30-135); Estimated Glomerular Filt Rate > 60 mL/min (>60); Globulin 2.2 g/dL (1.7-4.1); Glucose 104 mg/dL (70-99); HEMOLYSIS 20 (0-50); Lipase 152 U/L (23-300); Magnesium 1.7 mg/dL (1.6-2.3); Potassium 3.9 mmol/L (3.4-5.1); Sodium 134 mmol/L (137-145); Total Protein 6.4 g/dL (6.3-8.2)
[2024-10-06 09:29] LABS: NT-proBNP (BNP-Adult 18+) 552 pg/mL (<450); Troponin I < 0.012 ng/mL (0.01-0.034)
[2024-10-06] MEDS: SODIUM CHLORIDE 0.9% 1,000 ML 1000 ML IV (09:33)
[2024-10-06 09:59] LABS: Thyroid Stimulating Hormone 1.69 uIU/mL (0.47-4.68)
[2024-10-06 10:01] LABS: Appearance Urine UA SL CLOUDY; Bilirubin Urine UA NEGATIVE (NEGATIVE); Color Urine UA YELLOW; Glucose Urine UA NEGATIVE (Negative); Ketones Urine UA NEGATIVE (NEGATIVE); Leukocyte Esterase Urine UA 1+ (NEGATIVE); Nitrite Urine UA POSITIVE (Negative); Occult Blood Urine UA 1+ (Negative); Protein Urine UA NEGATIVE (Negative); Specific Gravity Urine UA 1.025 (1.000-1.035); Urobilinogen Urine UA 0.2 E.U./dL (0.2)
[2024-10-06 10:03] LABS: pH Urine UA 5.5 (4.5-8.0)
[2024-10-06 10:06] LABS: Bacteria Urine Many (>30); Culture Indicated Urine Specimen Cultured; RBC Urine 1-5/HPF (0-5/HPF); Squamous Epithelial Cell Urine 1-5 /HPF (0-5/HPF); Urine Volume 10mL (spun); WBC Urine 5-10/HPF (0-5/HPF)
[2024-10-06] MEDS: cefTRIAXone 1,000 MG in SODIUM CHLORIDE 0.9% 100 ML 200 MG IV (11:22)
[2024-10-06] MEDS: lisinopriL 10 MG TABLET PO (13:18)
== END 2024-10-06 14:54 | disposition home or self-care (01) ==
PROVIDERS: Emergency Provider Emergency Medicine; Family Provider Internal Medicine; PCP Internal Medicine
DX: N30.00 Acute cystitis without hematuria (principal); R53.83 Other fatigue; E86.0 Dehydration; I10 Essential (primary) hypertension
CPT/HCPCS: 36415; 71045; 80053; 81001; 82550; 83605; 83690; 83735; 83880; 84443; 84484; 85025; 85610; 85730; 87077; 87086; 87186; 93005; 93010; 96361; 96365; 99284; J0696

== ENCOUNTER 2024-10-09 13:15 | Emergency (ER) | payer MEDICARE, OTHER, SELFPAY ==
[2024-10-09] VITALS (20 sets, daily range): BP systolic 131–200; BP diastolic 66–86; PULSE 56–68; RESP 18–30; TEMP 36.8; O2SAT 92–98; BMI 19.0
--- NOTE | 2024-10-09 13:44 | DI.RAD.S_ITS ---
PROCEDURE: XR CHEST 1V INDICATIONS: Chest Pain TECHNIQUE: One view of the chest was acquired. COMPARISON: [facility], CR, XR CHEST 1V, 05/27/2024, 11:29. [facility], CT, CT ABDOMEN PELVIS W CON, 05/27/2024, 14:13. [facility], CR, XR CHEST 1V, 10/06/2024, 8:59. FINDINGS: Surgical changes and devices: Right axillary clips and left chest wall clips are seen. There is vertebroplasty cement seen at the L1 level. Lungs and pleura: Lungs are clear, yet hyperexpanded. No pleural effusions or pneumothorax. Mediastinum: The cardiac contours are within normal limits. The aorta demonstrates calcification and tortuosity. Bones and chest wall: No suspicious bony lesions. Age-appropriate bony degenerative changes are seen. Overlying soft tissues appear unremarkable. IMPRESSION: Hyperexpanded lungs, without an acute cardiopulmonary process identified. Postoperative and degenerative changes are seen. Dictated by: Luis Enrique Paul M.D. on 10/09/2024 at 13:38 Approved by: Luis Enrique Paul M.D. on 10/09/2024 at 13:39
[2024-10-09 14:03] LABS: Add Manual Diff / Slide Review NO; Basophils Absolute Auto 100 /uL (0-100); Basophils Percent Auto 0.9 % (0-2); Eosinophils Absolute Auto 400 /uL (0-450); Eosinophils Percent Auto 5.7 % (2-4); Hematocrit 39.1 % (36-46); Hemoglobin 13.4 g/dL (12.0-16.0); Lymphocytes Absolute Auto 1900 /uL (1100-4500); Lymphocytes Percent Auto 25.8 % (25-40); Mean Corpuscular HGB Conc 34.3 % (30-36); Mean Corpuscular Hemoglobin 30.9 PG (26-34); Monocytes Absolute Auto 800 /uL (0-900); Monocytes Percent Auto 10.4 % (3-14); Neutrophils Absolute Auto 4300 /uL (1500-7000); Neutrophils Percent Auto 57.2 % (50-75); Platelet Count 226 X10^3/uL (150-400); Red Blood Cell Count 4.35 X10^6/uL (4.0-5.2); White Blood Cell Count 7.5 X10^3/uL (4.5-11.0)
[2024-10-09 14:11] LABS: INR 0.9 (0.9-1.3); Prothrombin Time 10.7 SECONDS (9.4-12.5)
[2024-10-09 14:14] LABS: PTT Partial Thromboplastin Tim 40 SECONDS (25.1-36.5)
[2024-10-09 14:15] LABS: Alanine Aminotransferase 14 IU/L (<35); Alkaline Phosphatase 70 U/L (38-126); Aspartate Aminotransferase 21 IU/L (14-36); BUN Creatinine Ratio 17.5 (6-22); Bilirubin Total 0.5 mg/dL (0.2-1.3); Blood Urea Nitrogen 10 mg/dL (7-17); Calcium 9.3 mg/dL (8.4-10.2); Carbon Dioxide 25 mmol/L (22-32); Chloride 103 mmol/L (98-107); Creatine Kinase 39 U/L (30-135); Estimated Glomerular Filt Rate > 60 mL/min (>60); Glucose 89 mg/dL (70-99); HEMOLYSIS < 15 (0-50); Lipase 70 U/L (23-300); Magnesium 1.7 mg/dL (1.6-2.3); Sodium 133 mmol/L (137-145)
[2024-10-09 14:16] LABS: Lactate (Lactic Acid) 0.7 mmol/L (0.7-2.1)
--- NOTE | 2024-10-09 14:25 | EKG_ITS ---
[address] [address] Test Date: 2024-10-09 Pat Name: Yolis Antonio Department: [facility] Room: Gender: Female Interpreter: DEMARCUS : 1950 Requested By: Order Number: [id number] Reading MD: Nguyễn Robert MD Measurements Intervals [place] Rate: 60 P: 70 MS: 230 QRS: 62 QRSD: 90 T: 65 QT: 426 QTc: 426 Interpretive Statements Sinus rhythm with 1st degree AV block Electronically Signed On 10-10-2024 8:42:50 PDT by Nguyễn Robert MD
[2024-10-09 14:27] LABS: NT-proBNP (BNP-Adult 18+) 754 pg/mL (<450); Troponin I < 0.012 ng/mL (0.01-0.034)
--- NOTE | 2024-10-09 15:37 | ED_ITS ---
HPI - Dizziness <Kimberly Cerna, DO - Last Filed: 10/10/24 08:28> General Chief Complaint: Dizziness Stated Complaint: Vertigo Time Seen by Provider: 10/09/24 15:34 Source: patient Mode of arrival: Wheelchair History of Present Illness HPI Narrative: Patient is a 74-year-old female history of dementia depression COPD urinary incontinence breast cancer osteoporosis presenting today with vertigo. She was seen evaluated here October 06 diagnosed with a UTI treated with Augmentin which is appropriate. She reports feeling dizzy for the last couple of days. She actually lives independently in his usually able to do most things on her own however not the last couple days. No numbness tingling or weakness. She was never had vertigo before. She reports that she slept until noon today which is very abnormal for her. No significant abdominal pain nausea or vomiting. Daughter reports that she was actually discharged home on new blood pressure medication and an antibiotic however she was dizzy prior to the visit couple of days ago. It was thought that maybe she was dizzy due to hypertension and a UTI however the dizziness has continued. Patient lives alone and generally feels unsteady and unsafe being at home alone. Related Data Home Medications Medication Instructions Recorded Confirmed [id number] 1 cap PO Q DAY ##0 04/07/12 09/28/24 (Multiple Vitamin, Womens tablet) cyanocobalamin (vitamin B-12) 1,200 mcg PO .COMPLEX 07/25/19 09/28/24 1,000 mcg tablet (Vitamin B-12) Vitamin C 1,000 mg PO Q DAY ##0 05/08/20 09/28/24 Vitamin D3 2,000 unit PO Q DAY ##0 05/08/20 09/28/24 calcium carbonate 600 mg PO BID 05/08/20 09/28/24 turmeric root extract 500 mg 500 mg PO BID 05/08/20 09/28/24 capsule donepezil 5 mg tablet 5 mg PO BEDTIME 12/01/23 09/28/24 memantine 10 mg tablet 10 mg PO DAILY ALZHEIMERS 06/14/24 09/28/24 Previous Rx's Medication Instructions Recorded betamethasone valerate 0.1 % 1 applic topical BID PRN rash #45 09/29/23 topical cream grams albuterol sulfate 90 mcg/actuation 2 puff inhalation Q4-6H PRN 12/15/23 aerosol inhaler shortness of breath or wheezing #8.5 grams fluticasone propionate 230 2 puff inhalation BID #36 grams 12/15/23 mcg-salmeterol 21 mcg/actuation HFA inhaler (Advair HFA) alendronate 35 mg tablet See Rx Instructions .Route 12/17/23 .COMPLEX #12 tabs lovastatin 20 mg tablet 20 mg PO HS #90 tabs 12/26/23 fluoxetine 40 mg capsule 40 mg PO DAILY #90 caps 12/29/23 omeprazole 20 mg capsule,delayed 20 mg PO DAILY PRN stomach upset 12/29/23 release #90 caps tolterodine 2 mg capsule,extended 2 mg PO DAILY #90 caps 12/29/23 release 24 hr (Detrol LA) lorazepam 0.5 mg tablet 0.5 mg PO DAILY PRN sleep #60 tabs 05/17/24 trazodone 50 mg tablet 50 mg PO BEDTIME #90 tabs 07/12/24 amoxicillin 875 mg-potassium 1 tab PO BID #14 tabs 10/06/24 clavulanate 125 mg tablet lisinopril 10 mg tablet 10 mg PO DAILY #30 tabs 10/06/24 meclizine 50 mg tablet 50 mg PO TID #14 tabs 10/09/24 Allergies Allergy/AdvReac Type Severity Reaction Status Date / Time propoxyphene Allergy Mild RASH, HIVES Verified 10/06/24 09:05 nitrofurantoin AdvReac Intermediate Vomiting Verified 10/06/24 09:05 Patient History <Kimberly Cerna DO - Last Filed: 10/10/24 08:28> Medical History Alzheimer's dementia Depression Left upper quadrant abdominal mass COPD (chronic obstructive pulmonary disease) History of adenomatous polyp of colon Urinary incontinence Personal history of breast cancer Memory impairment Ventral hernia Kidney cysts Malignant neoplasm of breast (female), unspecified site (12/18/10) Other and unspecified hyperlipidemia (12/20/10) Unspecified hereditary and idiopathic peripheral neuropathy (09/28/11) Umbilical hernia History of basal cell carcinoma (BCC) excision (11/04/16) Osteoporosis (06/15/15) Surgical History History of total mastectomy Status post cholecystectomy Status post breast lumpectomy Status post appendectomy History of total mastectomy Family History Father Cancer Grandfather Heart disease Social History household members: none Smoking Status: Never smoker alcohol intake: former Smoking Status: Never smoker Exam <Kimberly Cerna DO - Last Filed: 10/10/24 08:28> Initial Vital Signs Initial Vital Signs: Vital Signs Temperature 98.3 F 10/09/24 13:19 Pulse Rate 68 10/09/24 13:19 Respiratory Rate 18 10/09/24 13:19 Blood Pressure 186/79 H 10/09/24 13:19 Pulse Oximetry 98 10/09/24 13:19 Oxygen Delivery Method Room Air 10/09/24 13:19 GENERAL: Alert pleasant well-appearing 74-year-old female and in no acute distress. HEENT: Head atraumatic,EOMI, pupils reactive, face symmetric, moist mucous membranes CARDIOVASCULAR: Regular rate and rhythm without murmurs, rubs or gallops. RESPIRATORY: Breath sounds equal bilaterally, no wheezes rales or rhonchi. ABDOMEN: Soft, nontender. Normoactive bowel sounds all 4 quadrants. No guarding or rebound. EXTREMITIES: Normal range of motion, no clubbing or edema. Neurovascularly intact NEUROLOGICAL: Alert and oriented x4.Normal gait and speech. Cranial nerves II through XII grossly intact. Good [id number], good [id number], strength equal bilaterally, no dysarthria or aphasia, sensation in tact to soft touch bilaterally, no visual changes, no facial droop SKIN: Warm, dry, no laceration, no petechiae, no rashes or lesions. <Mu Monet MD - Last Filed: 10/09/24 23:32> Initial Vital Signs Initial Vital Signs: Vital Signs Temperature 98.3 F 10/09/24 13:19 Pulse Rate 68 10/09/24 13:19 Respiratory Rate 18 10/09/24 13:19 Blood Pressure 186/79 H 10/09/24 13:19 Pulse Oximetry 98 10/09/24 13:19 Oxygen Delivery Method Room Air 10/09/24 13:19 Course <Kimberly Cerna, DO - Last Filed: 10/10/24 08:28> Orders Ordered: Discontinued Medications Sodium Chloride (Normal Saline 0.9%) 1,000 mls @ 1,000 mls/hr IV BOLUS ONE Stop: 10/09/24 16:43 Last Infusion: 10/09/24 17:14 Dose: Infused Documented By: Admin: 10/09/24 15:57 Dose: 1,000 mls/hr Documented By: ANTOINE Meclizine HCl (Meclizine Hcl 12.5 Mg Tablet) 25 mg PO NOW ONE Stop: 10/09/24 15:45 Last Admin: 10/09/24 15:57 Dose: 25 mg Documented By: ANTOINE Meclizine HCl (Meclizine Hcl 12.5 Mg Tablet) 25 mg PO NOW ONE Stop: 10/09/24 18:46 Last Admin: 10/09/24 19:01 Dose: 25 mg Documented By: ANTOINE Midazolam HCl (Midazolam 2 Mg/2 Ml Vial) 1 mg IV NOW ONE Stop: 10/09/24 17:34 Last Admin: 10/09/24 17:51 Dose: 1 mg Documented By: ANTOINE Ondansetron HCl (Ondansetron 4 Mg/2 Ml Inj) 4 mg IV NOW ONE Stop: 10/09/24 15:45 Last Admin: 10/09/24 15:57 Dose: 4 mg Documented By: ANTOINE Vital Signs Vital signs: Vital Signs - 8 hr 10/09/24 16:00 10/09/24 16:01 10/09/24 16:01 Pulse Rate 61 61 Respiratory Rate 25 H 30 H Blood Pressure 184/78 H Pulse Oximetry 97 95 10/09/24 16:30 10/09/24 17:00 10/09/24 17:48 Pulse Rate 56 L 62 64 Respiratory Rate 23 24 Blood Pressure Pulse Oximetry 94 96 94 10/09/24 17:50 10/09/24 17:50 10/09/24 18:00 Pulse Rate 65 Respiratory Rate 24 Blood Pressure 140/66 144/70 H Pulse Oximetry 93 10/09/24 18:00 10/09/24 18:30 10/09/24 18:30 Pulse Rate 63 Respiratory Rate 22 Blood Pressure 154/72 H 154/72 H Pulse Oximetry 95 10/09/24 18:30 10/09/24 19:01 10/09/24 19:30 Pulse Rate 65 64 60 Respiratory Rate 21 Blood Pressure Pulse Oximetry 95 95 93 10/09/24 19:47 10/09/24 19:48 10/09/24 19:49 Pulse Rate 66 Respiratory Rate 24 18 Blood Pressure 200/78 H Pulse Oximetry 92 <Mu Monet MD - Last Filed: 10/09/24 23:32> Orders Ordered: Discontinued Medications Sodium Chloride (Normal Saline 0.9%) 1,000 mls @ 1,000 mls/hr IV BOLUS ONE Stop: 10/09/24 16:43 Last Infusion: 10/09/24 17:14 Dose: Infused Documented By: Admin: 10/09/24 15:57 Dose: 1,000 mls/hr Documented By: ANTOINE Meclizine HCl (Meclizine Hcl 12.5 Mg Tablet) 25 mg PO NOW ONE Stop: 10/09/24 15:45 Last Admin: 10/09/24 15:57 Dose: 25 mg Documented By: ANTOINE Meclizine HCl (Meclizine Hcl 12.5 Mg Tablet) 25 mg PO NOW ONE Stop: 10/09/24 18:46 Last Admin: 10/09/24 19:01 Dose: 25 mg Documented By: ANTOINE Midazolam HCl (Midazolam 2 Mg/2 Ml Vial) 1 mg IV NOW ONE Stop: 10/09/24 17:34 Last Admin: 10/09/24 17:51 Dose: 1 mg Documented By: ANTOINE Ondansetron HCl (Ondansetron 4 Mg/2 Ml Inj) 4 mg IV NOW ONE Stop: 10/09/24 15:45 Last Admin: 10/09/24 15:57 Dose: 4 mg Documented By: ANTOINE Vital Signs Vital signs: Vital Signs - 8 hr 10/09/24 16:00 10/09/24 16:01 10/09/24 16:01 Pulse Rate 61 61 Respiratory Rate 25 H 30 H Blood Pressure 184/78 H Pulse Oximetry 97 95 10/09/24 16:30 10/09/24 17:00 10/09/24 17:48 Pulse Rate 56 L 62 64 Respiratory Rate 23 24 Blood Pressure Pulse Oximetry 94 96 94 10/09/24 17:50 10/09/24 17:50 10/09/24 18:00 Pulse Rate 65 Respiratory Rate 24 Blood Pressure 140/66 144/70 H Pulse Oximetry 93 10/09/24 18:00 10/09/24 18:30 10/09/24 18:30 Pulse Rate 63 Respiratory Rate 22 Blood Pressure 154/72 H 154/72 H Pulse Oximetry 95 10/09/24 18:30 10/09/24 19:01 10/09/24 19:30 Pulse Rate 65 64 60 Respiratory Rate 21 Blood Pressure Pulse Oximetry 95 95 93 10/09/24 19:47 10/09/24 19:48 10/09/24 19:49 Pulse Rate 66 Respiratory Rate 24 18 Blood Pressure 200/78 H Pulse Oximetry 92 MDM - Dizziness <Kimberly Eryn, DO - Last Filed: 10/10/24 08:28> Lab Data 10/09/24 13:55 10/09/24 13:55 Labs: Lab Results 10/09/24 Range/Units 13:55 WBC 7.5 (4.5-11.0) X10^3/uL RBC 4.35 (4.0-5.2) X10^6/uL Hgb 13.4 (12.0-16.0) g/dL Hct 39.1 (36-46) % MCV 90.0 (80-100) fL MCH 30.9 (26-34) PG MCHC 34.3 (30-36) % RDW 13.0 (11.6-14.8) % Plt Count 226 (150-400) X10^3/uL Neut % (Auto) 57.2 (50-75) % Lymph % (Auto) 25.8 (25-40) % [place] % (Auto) 10.4 (3-14) % Eos % (Auto) 5.7 H (2-4) % Baso % (Auto) 0.9 (0-2) % Neut # (Auto) 4300 (4041-2377) /uL Lymph # (Auto) 1900 (9974-6585) /uL [place] # (Auto) 800 (0-900) /uL Eos # (Auto) 400 (0-450) /uL Baso # (Auto) 100 (0-100) /uL PT 10.7 (9.4-12.5) SECONDS INR 0.9 (0.9-1.3) APTT 40 H (25.1-36.5) SECONDS Sodium 133 L (137-145) mmol/L Potassium 4.0 (3.4-5.1) mmol/L Chloride 103 (98-107) mmol/L Carbon Dioxide 25 (22-32) mmol/L BUN 10 (7-17) mg/dL Creatinine 0.57 (0.52-1.04) mg/dL Estimated GFR > 60 (>60) mL/min BUN/Creatinine Ratio 17.5 (6-22) Glucose 89 (70-99) mg/dL Lactate 0.7 (0.7-2.1) mmol/L Calcium 9.3 (8.4-10.2) mg/dL Magnesium 1.7 (1.6-2.3) mg/dL Total Bilirubin 0.5 (0.2-1.3) mg/dL AST 21 (14-36) IU/L ALT 14 (<35) IU/L Alkaline Phosphatase 70 (38-126) U/L Total Creatine Kinase 39 (30-135) U/L Troponin I < 0.012 (0.01-0.034) ng/mL NT-Pro-B Natriuret Pep 754 H (<450) pg/mL Total Protein 6.0 L (6.3-8.2) g/dL Albumin 4.0 (3.5-5.0) g/dL Globulin 2.0 (1.7-4.1) g/dL Albumin/Globulin Ratio 2.0 (1.0-2.8) Lipase 70 D (23-300) U/L Imaging Data CT scan - head: Radiologist's Impression: PROCEDURE: CT HEAD/BRAIN WO CON INDICATIONS: dizzy TECHNIQUE: Noncontrast 4.5 mm thick angled axial sections acquired from the foramen magnum to the vertex, with coronal and sagittal reformats. For radiation dose reduction, the following was used: automated exposure control, adjustment of mA and/or kV according to patient size. COMPARISON: [facility], CR, XR CHEST 1V, 10/09/2024, 14:03. [facility], CT, CT HEAD/BRAIN WO CON, 05/27/2024, 11:37. FINDINGS: Image quality: Diagnostic. CSF spaces: Basal cisterns are patent. No extra-axial fluid collections. The ventricles are symmetric in size and shape. Brain: No intracranial bleeds or mass effect. There is cerebral volume loss, with resultant ventricular and sulcal prominence. There are periventricular and deep white matter chronic small vessel ischemic changes. There is intracranial internal carotid artery atherosclerosis. Skull and face: Calvarium and visualized facial bones appear intact, without suspicious lesions. Sinuses: Visualized sinuses and mastoids are clear. The previously seen left maxillary sinus mucosal thickening has resolved. IMPRESSION: No imaging explanation is found for this patient's presenting symptoms. Noncontrast head CT similar to prior, although the previously seen left maxillary sinus disease has resolved. Dictated by: Luis Enrique Paul M.D. on 10/09/2024 at 15:34 Approved by: Luis Enrique Paul M.D. on 10/09/2024 at 15: Chest x-ray: Radiologist's Impression: PROCEDURE: XR CHEST 1V INDICATIONS: Chest Pain TECHNIQUE: One view of the chest was acquired. COMPARISON: [facility], CR, XR CHEST 1V, 05/27/2024, 11:29. [facility], CT, CT ABDOMEN PELVIS W CON, 05/27/2024, 14:13. [facility], CR, XR CHEST 1V, 10/06/2024, 8:59. FINDINGS: Surgical changes and devices: Right axillary clips and left chest wall clips are seen. There is vertebroplasty cement seen at the L1 level. Lungs and pleura: Lungs are clear, yet hyperexpanded. No pleural effusions or pneumothorax. Mediastinum: The cardiac contours are within normal limits. The aorta demonstrates calcification and tortuosity. Bones and chest wall: No suspicious bony lesions. Age-appropriate bony degenerative changes are seen. Overlying soft tissues appear unremarkable. IMPRESSION: Hyperexpanded lungs, without an acute cardiopulmonary process identified. Postoperative and degenerative changes are seen. Dictated by: Luis Enrique Paul M.D. on 10/09/2024 at 13:38 ECG Data Attestation: I personally reviewed and interpreted this ECG as follows: Prior ECG tracings: available for review Interpretation: Normal sinus rhythm rate 60 SC interval 230 QRS [address] changes or T- wave inversion MDM Narrative Medical decision making narrative: MDM CC: Dizziness Complicating co-morbidities: Dementia but lives independently depression COPD Data collected from: Patient and daughter Medical records reviewed: Recent ED visit shows UTI on Augmentin culture shows appropriate Differential considered: Exam documented above, pertinent findings include: Awake alert oriented 74-year-old female no neurologic deficits no facial droop Lab Test results independently reviewed as above. Pertinent findings: WBC 7.5 hemoglobin 13.4 hematocrit 39.1 platelets 226 Sodium 133 potassium 4.0 chloride 103 carbon dioxide 25 BUN 10 creatinine 0.5 glucose 89 Lactate 0.7 Troponin negative BNP 754 Independently reviewed EKG as above No ischemia Imaging studies independently reviewed: Head CT no intracranial process Chest x-ray no acute cardiopulmonary process Treatments: IV fluids meclizine Versed Re-evaluations: Patient ambulated after fluids and meclizine she still required assistance and felt very unstable but was able to walk. Discussion: Patient is a 74-year-old female presenting today with dizziness, she was started on lisinopril and Augmentin 3 days ago during that visit she reports feeling ?wonky but no dizziness really described. She reports that she feels consistently unstable on her feet. Attempted ambulation after fluids and meclizine and still not feeling quite right. To work is overall reassuring no evidence of sepsis. She has mild hypertension but no evidence of end-organ damage. Imaging does not show any significant abnormality. Suspect benign paroxysmal positional vertigo. Patient is signed out to Dr. Monet for further disposition 10/10/24, Chiki Diaz. Sign-out from Dr. Cerna. 74-year-old female with history of previous vertigo, evaluated here 10/06/2024 found to have hypertension in E coli UTI sensitive to her prescribed Augmentin antibiotic, still taking antibiotic. Having sensation of dizziness and unsteady gait with vertigo symptoms, no focal neuro findings. CT head tonight no acute changes. Given oral meclizine 25 mg, and IV Versed. Still feels unsteady, further observe for therapeutic effect of recent Versed. Assumed care. Still feels a little dizzy, she seemed interested in additional dose of oral meclizine 25 mg, ordered. Further observation, ambulation trial and 45-60 minutes. Feels better, requested to go home per RN. Prescription sent for further meclizine dosage her pharmacy. Discharged home with family. <Mu Monet MD - Last Filed: 10/09/24 23:32> Lab Data Labs: Lab Results 10/09/24 Range/Units 13:55 WBC 7.5 (4.5-11.0) X10^3/uL RBC 4.35 (4.0-5.2) X10^6/uL Hgb 13.4 (12.0-16.0) g/dL Hct 39.1 (36-46) % MCV 90.0 (80-100) fL MCH 30.9 (26-34) PG MCHC 34.3 (30-36) % RDW 13.0 (11.6-14.8) % Plt Count 226 (150-400) X10^3/uL Neut % (Auto) 57.2 (50-75) % Lymph % (Auto) 25.8 (25-40) % [place] % (Auto) 10.4 (3-14) % Eos % (Auto) 5.7 H (2-4) % Baso % (Auto) 0.9 (0-2) % Neut # (Auto) 4300 (3853-5351) /uL Lymph # (Auto) 1900 (7055-3783) /uL [place] # (Auto) 800 (0-900) /uL Eos # (Auto) 400 (0-450) /uL Baso # (Auto) 100 (0-100) /uL PT 10.7 (9.4-12.5) SECONDS INR 0.9 (0.9-1.3) APTT 40 H (25.1-36.5) SECONDS Sodium 133 L (137-145) mmol/L Potassium 4.0 (3.4-5.1) mmol/L Chloride 103 (98-107) mmol/L Carbon Dioxide 25 (22-32) mmol/L BUN 10 (7-17) mg/dL Creatinine 0.57 (0.52-1.04) mg/dL Estimated GFR > 60 (>60) mL/min BUN/Creatinine Ratio 17.5 (6-22) Glucose 89 (70-99) mg/dL Lactate 0.7 (0.7-2.1) mmol/L Calcium 9.3 (8.4-10.2) mg/dL Magnesium 1.7 (1.6-2.3) mg/dL Total Bilirubin 0.5 (0.2-1.3) mg/dL AST 21 (14-36) IU/L ALT 14 (<35) IU/L Alkaline Phosphatase 70 (38-126) U/L Total Creatine Kinase 39 (30-135) U/L Troponin I < 0.012 (0.01-0.034) ng/mL NT-Pro-B Natriuret Pep 754 H (<450) pg/mL Total Protein 6.0 L (6.3-8.2) g/dL Albumin 4.0 (3.5-5.0) g/dL Globulin 2.0 (1.7-4.1) g/dL Albumin/Globulin Ratio 2.0 (1.0-2.8) Lipase 70 D (23-300) U/L MDM Narrative Medical decision making narrative: MDM CC: Dizziness Complicating co-morbidities: Dementia but lives independently depression COPD Data collected from: Patient and daughter Medical records reviewed: Recent ED visit shows UTI on Augmentin culture shows appropriate Differential considered: Exam documented above, pertinent findings include: Awake alert oriented 74-year-old female no neurologic deficits no facial droop Lab Test results independently reviewed as above. Pertinent findings: WBC 7.5 hemoglobin 13.4 hematocrit 39.1 platelets 226 Sodium 133 potassium 4.0 chloride 103 carbon dioxide 25 BUN 10 creatinine 0.5 glucose 89 Lactate 0.7 Troponin negative BNP 754 Independently reviewed EKG as above No ischemia Imaging studies independently reviewed: Head CT no intracranial process Chest x-ray no acute cardiopulmonary process Consultations: [ ] Treatments: IV fluids meclizine Versed Re-evaluations: Patient ambulated after fluids and meclizine she still required assistance and felt very unstable but was able to walk. Discussion: Patient is a 74-year-old female presenting today with dizziness, she was started on lisinopril and Augmentin 3 days ago during that visit she reports feeling ?wonky but no dizziness really described. She reports that she feels consistently unstable on her feet. Attempted ambulation after fluids and meclizine and still not feeling quite right. To work is overall reassuring no evidence of sepsis. She has mild hypertension but no evidence of end-organ damage. Imaging does not show any significant abnormality. Suspect benign paroxysmal positional vertigo. Patient is signed out to Dr. Monet for further disposition 10/10/24, Chiki Diaz. Sign-out from Dr. Cerna. 74-year-old female with history of previous vertigo, evaluated here 10/06/2024 found to have hypertension in E coli UTI sensitive to her prescribed Augmentin antibiotic, still taking antibiotic. Having sensation of dizziness and unsteady gait with vertigo symptoms, no focal neuro findings. CT head tonight no acute changes. Given oral meclizine 25 mg, and IV Versed. Still feels unsteady, further observe for therapeutic effect of recent Versed. Assumed care. Still feels a little dizzy, she seemed interested in additional dose of oral meclizine 25 mg, ordered. Further observation, ambulation trial and 45-60 minutes. Feels better, requested to go home per RN. Prescription sent for further meclizine dosage her pharmacy. Discharged home with family. Discharge Plan Departure Patient Disposition: Home Clinical Impression: Dizziness Instructions: DI for Vertigo Activity Restrictions/Additional Instructions: Recurrent dizziness, worsening symptoms tonight. CT head done by previous provider showed no acute changes. Oral meclizine was given with some improvement, some benzodiazepine was also given. Further dose of meclizine was also given, further improved. Able to ambulate. We will send prescription for meclizine to your pharmacy. Take meclizine as directed. Follow up with your regular doctor on Friday. Return earlier to this/nearest emergency department for any change worsening symptoms or any concerns prior. Prescriptions: New meclizine 50 mg tablet 50 mg PO TID Qty: 14 0RF No Action Multiple Vitamin, Womens Tablet 1 cap PO Q DAY Qty: 0 cyanocobalamin (vitamin B-12) [Vitamin B-12] 1,000 mcg tablet 1,200 mcg PO .COMPLEX Rx Instructions: 1,200 mcg PO 3 times a week; Vitamin C 1,000 mg PO Q DAY Qty: 0 Vitamin D3 2,000 unit PO Q DAY Qty: 0 betamethasone valerate 0.1 % cream 1 applic topical BID PRN (Reason: rash) Qty: 45 0RF donepezil 5 mg tablet 5 mg PO BEDTIME Advair HFA 230-21 mcg/actuation HFA aerosol inhaler 2 puff inhalation BID Qty: 36 3RF Rx Instructions: administer with spacer albuterol sulfate 90 mcg/actuation HFA aerosol inhaler 2 puff inhalation Q4-6H PRN (Reason: shortness of breath or wheezing) Qty: 8.5 4RF alendronate 35 mg tablet See Rx Instructions .ROUTE .COMPLEX Qty: 12 3RF Dose Instruction: Take 1 tablet by mouth once a week Rx Instructions: Take 1 tablet by mouth once a week lovastatin 20 mg tablet 20 mg PO HS Qty: 90 3RF omeprazole 20 mg capsule,delayed release(DR/EC) 20 mg PO DAILY PRN (Reason: stomach upset) Qty: 90 3RF fluoxetine 40 mg capsule 40 mg PO DAILY Qty: 90 3RF tolterodine [Detrol LA] 2 mg capsule,extended release 24hr 2 mg PO DAILY Qty: 90 3RF lorazepam 0.5 mg tablet 0.5 mg PO DAILY PRN (Reason: sleep) Qty: 60 1RF Rx Instructions: Take one tablet once daily at bedtime as needed for sleep. calcium carbonate 600 mg calcium (1,500 mg) tablet 600 mg PO BID turmeric root extract 500 mg capsule 500 mg PO BID memantine 10 mg tablet 10 mg PO DAILY trazodone 50 mg tablet 50 mg PO BEDTIME Qty: 90 3RF amoxicillin-pot clavulanate 875-125 mg tablet 1 tab PO BID Qty: 14 0RF lisinopril 10 mg tablet 10 mg PO DAILY Qty: 30 0RF Referrals: Nguyễn Robert MD [Primary Care Provider] - Stand Alone Forms: Patient Portal/API/Survey
--- NOTE | 2024-10-09 15:44 | DI.CT.S_ITS ---
PROCEDURE: CT HEAD/BRAIN WO CON INDICATIONS: dizzy TECHNIQUE: Noncontrast 4.5 mm thick angled axial sections acquired from the foramen magnum to the vertex, with coronal and sagittal reformats. For radiation dose reduction, the following was used: automated exposure control, adjustment of mA and/or kV according to patient size. COMPARISON: [facility], CR, XR CHEST 1V, 10/09/2024, 14:03. [facility], CT, CT HEAD/BRAIN WO CON, 05/27/2024, 11:37. FINDINGS: Image quality: Diagnostic. CSF spaces: Basal cisterns are patent. No extra-axial fluid collections. The ventricles are symmetric in size and shape. Brain: No intracranial bleeds or mass effect. There is cerebral volume loss, with resultant ventricular and sulcal prominence. There are periventricular and deep white matter chronic small vessel ischemic changes. There is intracranial internal carotid artery atherosclerosis. Skull and face: Calvarium and visualized facial bones appear intact, without suspicious lesions. Sinuses: Visualized sinuses and mastoids are clear. The previously seen left maxillary sinus mucosal thickening has resolved. IMPRESSION: No imaging explanation is found for this patient's presenting symptoms. Noncontrast head CT similar to prior, although the previously seen left maxillary sinus disease has resolved. Dictated by: Luis Enrique Paul M.D. on 10/09/2024 at 15:34 Approved by: Luis Enrique Paul M.D. on 10/09/2024 at 15:35
[2024-10-09] MEDS: MECLIZINE HCL 12.5 MG TABLET 25 MG PO ×2 (15:57→19:01)
[2024-10-09] MEDS: SODIUM CHLORIDE 0.9% 1,000 ML 1000 ML IV (15:57)
[2024-10-09] MEDS: ONDANSETRON 4 MG/2 ML INJ IV (15:57)
[2024-10-09] MEDS: MIDAZOLAM 2 MG/2 ML VIAL 1 MG IV (17:51)
== END 2024-10-09 21:34 | disposition home or self-care (01) ==
PROVIDERS: Emergency Medicine; Emergency Provider Emergency Medicine; Family Provider Internal Medicine; PCP Internal Medicine
DX: R42 Dizziness and giddiness (principal); R07.9 Chest pain, unspecified; I10 Essential (primary) hypertension
CPT/HCPCS: 36415; 70450; 71045; 80053; 82550; 83605; 83690; 83735; 83880; 84484; 85025; 85610; 85730; 93005; 93010; 96361; 96374; 96375; 99284; J2250; J2405

== ENCOUNTER 2024-11-10 08:30 | Outpatient (RCR) | payer MEDICARE, OTHER, SELFPAY | END 2024-11-10 10:30 | LOC: PUL 08:30 | PROVIDERS: Family Provider Internal Medicine; PCP Internal Medicine; Referring Provider Internal Medicine; Visit Provider Internal Medicine | DX: J44.9 Chronic obstructive pulmonary disease, unspecified (principal) | CPT/HCPCS: 94625; 94626 ==

== ENCOUNTER → 2024-11-26 13:41 | Outpatient (CLI) | payer MEDICARE, OTHER, SELFPAY | PROVIDERS: Family Provider Internal Medicine; PCP Internal Medicine; Visit Provider Urology | DX: R32 Unspecified urinary incontinence (principal) | CPT/HCPCS: 87077; 87086; 87186 ==